=== PATIENT | male | born 1975 ===

== ENCOUNTER 2016-10-09 03:07 | Emergency (ER) | payer MEDICAID ==
[2016-10-09 03:19] VITALS: BP 119/93; PULSE 16; TEMP 97.2; O2SAT 97
[2016-10-09] MEDS ORDERED: Albuterol-Ipratrop 3 mg / 0.5 (3 ml) UD ONE ×2 (03:45→04:48)
[2016-10-09] MEDS ORDERED: Albuterol-Ipratrop 3 mg / 0.5 (3 ml) UD INH STA ×2 (03:47→04:42)
--- NOTE | 2016-10-09 03:56 | ED PDOC ---
HPI: SOB/CHF/COPD Time Seen by Provider: 10/09/16 03:10 Chief Complaint (Nursing): Shortness Of Breath Chief Complaint (Provider): asthma History Per: Patient History/Exam Limitations: no limitations Additional Complaint(s): pt with history of asthma, presented with asthma exacerbation. pt ran out of albuterol MDI 2 days ago and tonight a few hours ago started feeling sob and chest tightening. no fever/chills/vomiting/chest pain or other symptoms. Past Medical History Reviewed: Historical Data, Nursing Documentation Vital Signs: Last Vital Signs Temp 97.2 F L 10/09/16 03:17 Pulse 16 L 10/09/16 03:17 Resp 16 10/09/16 03:17 BP 119/93 H 10/09/16 03:17 Pulse Ox 97 10/09/16 03:56 - Medical History PMH: Asthma, Pneumonia - Surgical History Surgical History: No Surg Hx - Family History Family History: States: Unknown Family Hx - Social History Current smoker - smoking cessation education provided: No Alcohol: None Drugs: Denies - Home Medications Home Medications: Ambulatory Orders Medication Instructions Recorded oxyCODONE/Acetaminophen [Percocet 1 ea PO Q8 PRN #10 tab 07/22/16 5/325 mg Tab] Methylprednisolone [Medrol Dosepak] 4 mg PO ASDIR #1 pkg 08/02/16 Albuterol HFA [Ventolin HFA 90 2 puff IH Q4H #1 puff 08/24/16 mcg/actuation (8 g)] Albuterol HFA [Ventolin HFA 90 1 - 2 puff IH Q4H PRN #1 bottle 10/09/16 mcg/actuation (8 g)] predniSONE [Prednisone] 40 mg PO DAILY #8 tab 10/09/16 - Allergies Allergies/Adverse Reactions: Allergies Allergy/AdvReac Type Severity Reaction Status Date / Time No Known Allergies Allergy Verified 05/11/16 00:11 Review of Systems ROS Statement: Except As Marked, All Systems Reviewed And Found Negative Respiratory: Positive for: Shortness of Breath Physical Exam - Reviewed Nursing Documentation Reviewed: Yes Vital Signs Reviewed: Yes - Physical Exam Appears: Positive for: Well, Non-toxic, No Acute Distress Head Exam: Positive for: ATRAUMATIC, NORMAL INSPECTION, NORMOCEPHALIC Skin: Positive for: Normal Color, Warm, DRY Eye Exam: Positive for: EOMI, Normal appearance, PERRL ENT: Positive for: Normal ENT Inspection Neck: Positive for: Normal, Painless ROM Cardiovascular/Chest: Positive for: Regular Rate, Rhythm Respiratory: Positive for: CNT, Normal Breath Sounds Gastrointestinal/Abdominal: Positive for: Normal Exam, Bowel Sounds, Soft Back: Positive for: Normal Inspection Extremity: Positive for: Normal ROM Neurologic/Psych: Positive for: Alert, Oriented - ECG O2 Sat by Pulse Oximetry: 97 Medical Decision Making Medical Decision Making: asthma exacacerbation duonebs prednisone pt reevaluated, feels better. lungs clear, 02 sat normal. dx asthma rx albuterol mdi prednisone outpt follow up recomended-referral to clinic Disposition - Clinical Impression Clinical Impression: Asthma - Patient ED Disposition Is Patient to be Admitted: No Counseled Patient/Family Regarding: Studies Performed, Diagnosis, Need For Followup - Disposition Referrals: Kyle Lizama DO [Primary Care Provider] - Disposition: Routine/Home Disposition Time: 05:00 Condition: GOOD Additional Instructions: follow up with your primary doctor in 1-2 days. return to ED with any worsening or concerning symptoms Prescriptions: Albuterol HFA [Ventolin HFA 90 mcg/actuation (8 g)] 1 - 2 puff IH Q4H PRN #1 bottle PRN Reason: Wheezing predniSONE [Prednisone] 40 mg PO DAILY #8 tab Instructions: Asthma (ED)
[2016-10-09 06:37] VITALS: RESP 18
== END 2016-10-09 05:30 | disposition home or self-care (01) ==
LOC: H.ER 03:07
DX: J45.901 Unspecified asthma with (acute) exacerbation (principal)

== ENCOUNTER 2016-10-14 00:08 | Emergency (ER) | payer MEDICAID ==
[2016-10-14 00:13] VITALS: BP 120/67; PULSE 102; TEMP 98; O2SAT 98
[2016-10-14] MEDS ORDERED: Albuterol-Ipratrop 3 mg / 0.5 (3 ml) UD INH STA ×2 (00:24→00:25)
[2016-10-14] MEDS ORDERED: methylPREDNISolone 125 MG in Sodium Chloride 0.9% 100 ML IV STA (00:24)
--- NOTE | 2016-10-14 01:12 | ED PDOC ---
HPI: SOB/CHF/COPD Time Seen by Provider: 10/14/16 00:13 Chief Complaint (Nursing): Shortness Of Breath Chief Complaint (Provider): SOB History Per: Patient History/Exam Limitations: no limitations Onset/Duration Of Symptoms: Hrs Current Symptoms Are (Timing): Gone Now Additional Complaint(s): 41yo male with PMHx including asthma presents to the ED with c/o SOB, now resolved. Patient ran out of home albuterol and pump causing presentation. No active wheezing, SOB, discomfort, or any other symptoms. Patient is presenting for refill of albuterol. Past Medical History Reviewed: Historical Data, Nursing Documentation, Vital Signs Vital Signs: Last Vital Signs Temp 98.0 F 10/14/16 00:11 Pulse 102 H 10/14/16 00:11 Resp 16 10/14/16 00:11 BP 120/67 10/14/16 00:11 Pulse Ox 98 10/14/16 00:11 - Medical History PMH: Asthma, Pneumonia - Surgical History Surgical History: No Surg Hx - Family History Family History: States: No Known Family Hx - Social History Current smoker - smoking cessation education provided: No Alcohol: None Drugs: Denies - Home Medications Home Medications: Ambulatory Orders Medication Instructions Recorded oxyCODONE/Acetaminophen [Percocet 1 ea PO Q8 PRN #10 tab 07/22/16 5/325 mg Tab] Methylprednisolone [Medrol Dosepak] 4 mg PO ASDIR #1 pkg 08/02/16 Albuterol HFA [Ventolin HFA 90 2 puff IH Q4H #1 puff 08/24/16 mcg/actuation (8 g)] Albuterol HFA [Ventolin HFA 90 1 - 2 puff IH Q4H PRN #1 bottle 10/09/16 mcg/actuation (8 g)] predniSONE [Prednisone] 40 mg PO DAILY #8 tab 10/09/16 Albuterol 0.5% [Albuterol 0.5% 2.5 mg IH Q6 PRN #1 packet 10/14/16 Inhal Stephanie (2.5 mg/0.5 ml) UD] Albuterol HFA [Ventolin HFA 90 1 - 2 puff IH Q6 PRN #1 inhaler 10/14/16 mcg/actuation (8 g)] - Allergies Allergies/Adverse Reactions: Allergies Allergy/AdvReac Type Severity Reaction Status Date / Time No Known Allergies Allergy Verified 10/14/16 00:11 Review of Systems ROS Statement: Except As Marked, All Systems Reviewed And Found Negative Respiratory: Negative for: Shortness of Breath, Wheezing Physical Exam - Reviewed Nursing Documentation Reviewed: Yes Vital Signs Reviewed: Yes - Physical Exam Appears: Positive for: Well, No Acute Distress Head Exam: Positive for: ATRAUMATIC, NORMAL INSPECTION, NORMOCEPHALIC Skin: Positive for: Normal Color, Warm, Dry Eye Exam: Positive for: Normal appearance, EOMI, PERRL ENT: Positive for: Normal ENT Inspection Neck: Positive for: Normal, Painless ROM, Supple Cardiovascular/Chest: Positive for: Regular Rate, Rhythm. Negative for: Murmur , Tachycardia Respiratory: Positive for: Normal Breath Sounds. Negative for: Wheezing, Respiratory Distress Gastrointestinal/Abdominal: Positive for: Normal Exam, Bowel Sounds, Soft. Negative for: Tenderness Back: Positive for: Normal Inspection. Negative for: L CVA Tenderness, R CVA Tenderness Extremity: Positive for: Normal ROM. Negative for: Deformity, Swelling Neurologic/Psych: Positive for: Alert, Oriented. Negative for: Motor/Sensory Deficits - ECG O2 Sat by Pulse Oximetry: 98 Pulse Ox Interpretation: Normal (RA) Medical Decision Making Medical Decision Makin: Impression: asthma Plan: Patient provided Rx for nebulizer solution, albuterol, and pump. Patient is stable for discharge. Scribe Attestation: Documented by Miya Hay acting as a scribe for Kahlil Fairchild MD. Provider Scribe Attestation: All medical record entries made by the Scribe were at my direction and personally dictated by me. I have reviewed the chart and agree that the record accurately reflects my personal performance of the history, physical exam, medical decision making, and the department course for this patient. I have also personally directed, reviewed, and agree with the discharge instructions and disposition. Disposition - Clinical Impression Clinical Impression: Asthma - Patient ED Disposition Is Patient to be Admitted: No - Disposition Referrals: Kyle Lizama DO [Primary Care Provider] - Disposition: Routine/Home Disposition Time: 01:18 Condition: STABLE Prescriptions: Albuterol 0.5% [Albuterol 0.5% Inhal Stephanie (2.5 mg/0.5 ml) UD] 2.5 mg IH Q6 PRN # 1 packet PRN Reason: Shortness Of Breath Albuterol HFA [Ventolin HFA 90 mcg/actuation (8 g)] 1 - 2 puff IH Q6 PRN #1 inhaler PRN Reason: Shortness Of Breath Instructions: Asthma (ED)
[2016-10-14 05:28] VITALS: RESP 20
== END 2016-10-14 01:03 | disposition home or self-care (01) ==
LOC: H.ER 00:08
DX: J45.909 Unspecified asthma, uncomplicated (principal)

== ENCOUNTER 2016-12-11 02:00 | Emergency (ER) | payer MEDICAID ==
[2016-12-11] MEDS ORDERED: Albuterol-Ipratrop 3 mg / 0.5 (3 ml) UD INH STA ×3 (03:00→03:20)
[2016-12-11] MEDS ORDERED: Albuterol-Ipratrop 3 mg / 0.5 (3 ml) UD ONE (03:22)
--- NOTE | 2016-12-11 04:33 | ED PDOC ---
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 denies fevers/chills. Past Medical History Reviewed: Historical Data, Nursing Documentation, Vital Signs - Medical History PMH: Asthma, Pneumonia - Family History Family History: States: Unknown Family Hx - Home Medications Home Medications: Ambulatory Orders Medication Instructions Recorded oxyCODONE/Acetaminophen [Percocet 1 ea PO Q8 PRN #10 tab 07/22/16 5/325 mg Tab] Methylprednisolone [Medrol Dosepak] 4 mg PO ASDIR #1 pkg 08/02/16 Albuterol HFA [Ventolin HFA 90 2 puff IH Q4H #1 puff 08/24/16 mcg/actuation (8 g)] Albuterol HFA [Ventolin HFA 90 1 - 2 puff IH Q4H PRN #1 bottle 10/09/16 mcg/actuation (8 g)] predniSONE [Prednisone] 40 mg PO DAILY #8 tab 10/09/16 Albuterol 0.5% [Albuterol 0.5% 2.5 mg IH Q6 PRN #1 packet 10/14/16 Inhal Stephanie (2.5 mg/0.5 ml) UD] Albuterol HFA [Ventolin HFA 90 1 - 2 puff IH Q6 PRN #1 inhaler 10/14/16 mcg/actuation (8 g)] Albuterol HFA [Ventolin HFA 90 2 puff IH [id number] #1 puff 12/11/16 mcg/actuation (8 g)] predniSONE [predniSONE Tab] 60 mg PO DAILY #9 tab 12/11/16 - Allergies Allergies/Adverse Reactions: Allergies Allergy/AdvReac Type Severity Reaction Status Date / Time No Known Allergies Allergy Verified 10/14/16 00:11 Review of Systems ROS Statement: Except As Marked, All Systems Reviewed And Found Negative Respiratory: Positive for: Cough, Shortness of Breath, Wheezing Physical Exam - Reviewed Nursing Documentation Reviewed: Yes - Physical Exam Appears: Positive for: Well, Non-toxic, No Acute Distress Head Exam: Positive for: ATRAUMATIC, NORMAL INSPECTION, NORMOCEPHALIC Skin: Positive for: Normal Color, Warm, DRY Eye Exam: Positive for: EOMI, Normal appearance, PERRL ENT: Positive for: Normal ENT Inspection Neck: Positive for: Normal, Painless ROM Cardiovascular/Chest: Positive for: Regular Rate, Rhythm Respiratory: Positive for: Wheezing Gastrointestinal/Abdominal: Positive for: Normal Exam, Bowel Sounds, Soft Back: Positive for: Normal Inspection Extremity: Positive for: Normal ROM Neurologic/Psych: Positive for: Alert, Oriented - ECG Pulse Ox Interpretation: Normal Medical Decision Making Medical Decision Making: Impression: asthma exacerbation. Will give nebs and reassess patient. 420AM: Pt's wheezing much improved, will d/c home. Return precautions given. Disposition - Clinical Impression Clinical Impression: Asthma - Disposition Referrals: Kyle Lizama DO [Primary Care Provider] - Disposition Time: 04:20 Condition: IMPROVED Prescriptions: Albuterol HFA [Ventolin HFA 90 mcg/actuation (8 g)] 2 puff IH [id number] #1 puff predniSONE [predniSONE Tab] 60 mg PO DAILY #9 tab Instructions: Asthma (ED)
[2016-12-11 04:38] VITALS: BP 127/89; PULSE 74; RESP 18; TEMP 99; O2SAT 96; BMI 23.1
--- NOTE | 2016-12-11 16:09 | CARD ---
APPROVED REPORT EKG Measurement Heart [id number] [place] 164P83 [id number] <Conclusion> Normal sinus rhythm Normal ECG
== END 2016-12-11 04:28 | disposition home or self-care (01) ==
LOC: H.ER 02:00
DX: J45.901 Unspecified asthma with (acute) exacerbation (principal)

== ENCOUNTER 2016-12-26 16:44 | Emergency (ER) | payer MEDICAID ==
[2016-12-26 16:44] VITALS: BMI 23.1
[2016-12-26 16:54] VITALS: BP 139/49; TEMP 98.2; O2SAT 94
[2016-12-26] MEDS ORDERED: Albuterol-Ipratrop 3 mg / 0.5 (3 ml) UD ONE ×2 (16:57→18:13)
[2016-12-26] MEDS ORDERED: Albuterol-Ipratrop 3 mg / 0.5 (3 ml) UD INH STA ×2 (17:01→18:16)
[2016-12-26 17:20] VITALS: RESP 21
--- NOTE | 2016-12-26 17:32 | ED PDOC ---
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 Patient states that he recently ran out of his Albuterol pump. Similar symptoms previously of asthma exacerbation in the past. Denies a fever or a productive cough. PMD: Higinio Lyles Past Medical History Reviewed: Historical Data, Nursing Documentation, Vital Signs Vital Signs: Last Vital Signs Temp 98.2 F 12/26/16 16:51 Pulse 82 12/26/16 17:43 Resp 21 12/26/16 17:07 BP 139/49 L 12/26/16 16:51 Pulse Ox 94 L 12/26/16 17:43 - Medical History PMH: Asthma, Pneumonia - Surgical History Surgical History: No Surg Hx - Family History Family History: States: No Known Family Hx - Social History Current smoker - smoking cessation education provided: No Ex-Smoker (has not smoked in the last 12 months): No Alcohol: Occasional Drugs: Cannabis, Cocaine, Opiates (heroin) - Home Medications Home Medications: Ambulatory Orders Medication Instructions Recorded oxyCODONE/Acetaminophen [Percocet 1 ea PO Q8 PRN #10 tab 07/22/16 5/325 mg Tab] Methylprednisolone [Medrol Dosepak] 4 mg PO ASDIR #1 pkg 08/02/16 Albuterol HFA [Ventolin HFA 90 2 puff IH Q4H #1 puff 08/24/16 mcg/actuation (8 g)] Albuterol HFA [Ventolin HFA 90 1 - 2 puff IH Q4H PRN #1 bottle 10/09/16 mcg/actuation (8 g)] predniSONE [Prednisone] 40 mg PO DAILY #8 tab 10/09/16 Albuterol 0.5% [Albuterol 0.5% 2.5 mg IH Q6 PRN #1 packet 10/14/16 Inhal Stephanie (2.5 mg/0.5 ml) UD] Albuterol HFA [Ventolin HFA 90 1 - 2 puff IH Q6 PRN #1 inhaler 10/14/16 mcg/actuation (8 g)] Albuterol HFA [Ventolin HFA 90 2 puff IH [id number] #1 puff 12/11/16 mcg/actuation (8 g)] predniSONE [predniSONE Tab] 60 mg PO DAILY #9 tab 12/11/16 Albuterol HFA [Ventolin HFA 90 2 puff IH Q4H PRN #1 inh 12/26/16 mcg/actuation (8 g)] Prednisone 50 mg PO DAILY #4 tablet 12/26/16 - Allergies Allergies/Adverse Reactions: Allergies Allergy/AdvReac Type Severity Reaction Status Date / Time No Known Allergies Allergy Verified 12/26/16 16:51 Review of Systems ROS Statement: Except As Marked, All Systems Reviewed And Found Negative Constitutional: Negative for: Fever Respiratory: Positive for: Shortness of Breath. Negative for: Cough, Sputum Physical Exam - Reviewed Nursing Documentation Reviewed: Yes Vital Signs Reviewed: Yes - Physical Exam Appears: Positive for: Well, Non-toxic, No Acute Distress Head Exam: Positive for: ATRAUMATIC, NORMOCEPHALIC Skin: Positive for: Normal Color, Warm Eye Exam: Positive for: Normal appearance, EOMI, PERRL ENT: Positive for: Normal ENT Inspection. Negative for: Pharyngeal Erythema, Tonsillar Exudate, Tonsillar Swelling Neck: Positive for: Normal, Painless ROM, Supple Cardiovascular/Chest: Positive for: Regular Rate, Rhythm. Negative for: Murmur Respiratory: Positive for: Wheezing (diffuse, inspiratory and expiratory), Respiratory Distress (mild). Negative for: Normal Breath Sounds, Accessory Muscle Use Gastrointestinal/Abdominal: Positive for: Normal Exam, Soft. Negative for: Tenderness Back: Positive for: Normal Inspection. Negative for: L CVA Tenderness, R CVA Tenderness Extremity: Positive for: Normal ROM. Negative for: Tenderness, Swelling Lymphatic: Negative for: Adenopathy Neurologic/Psych: Positive for: Alert, Oriented. Negative for: Motor/Sensory Deficits - ECG ECG Rhythm: Positive for: Normal QRS, Normal ST Segment, Sinus Rhythm Rate: 82 O2 Sat by Pulse Oximetry: 94 (RA) Pulse Ox Interpretation: Normal Medical Decision Making Medical Decision Makin:58 Initial Impression: Asthma exacerbation Initial Plan: * Electrocardiogram * Albuterol/Ipratropium 6 ml INH * Peak Flow Pre/Post Treatment * Reevaluation 17:30 EKG read at a rate of 82 with a Normal QRS, Normal ST Segment, and a Normal Sinus Rhythm. 1900 Pt has persistent wheeze with minimal peak flow improvement. However he reports feeling better and eager to go home. dc w f/u pmd 1-2 d Scribe Attestation: Documented by Bismark Krishnamurthy, acting as a scribe for Casandra Chaparro MD. Provider Scribe Attestation: All medical record entries made by the Scribe were at my direction and personally dictated by me. I have reviewed the chart and agree that the record accurately reflects my personal performance of the history, physical exam, medical decision making, and the department course for this patient. I have also personally directed, reviewed, and agree with the discharge instructions and disposition. Disposition - Clinical Impression Clinical Impression: Asthma exacerbation - Disposition Referrals: Higinio Lyles MD [Staff Provider] - Disposition: Routine/Home Disposition Time: 19:00 Condition: IMPROVED Prescriptions: Albuterol HFA [Ventolin HFA 90 mcg/actuation (8 g)] 2 puff IH Q4H PRN #1 inh PRN Reason: ASTHMA Prednisone 50 mg PO DAILY #4 tablet Instructions: Asthma (ED)
[2016-12-26 17:43] VITALS: PULSE 82
--- NOTE | 2016-12-27 08:52 | CARD ---
APPROVED REPORT EKG Measurement Heart [id number] [place] [id number] [id number] <Conclusion> Sinus tachycardia Possible Left atrial enlargement Left ventricular hypertrophy with repolarization abnormality Abnormal ECG
--- NOTE | 2016-12-31 09:35 | CARD ---
APPROVED REPORT EKG Measurement Heart [id number] [place] 156P78 [id number] <Conclusion> Normal sinus rhythm with sinus arrhythmia Normal ECG
== END 2016-12-26 19:30 | disposition home or self-care (01) ==
LOC: H.ER 16:44
DX: J45.901 Unspecified asthma with (acute) exacerbation (principal); Z87.891 Personal history of nicotine dependence

== ENCOUNTER 2017-01-05 09:36 | Emergency (ER) | payer MEDICAID ==
[2017-01-05 09:44] VITALS: BP 146/106; PULSE 78; RESP 18; TEMP 98.2; O2SAT 100; BMI 26.6
[2017-01-05] MEDS ORDERED: Sodium Chloride 0.9% 1,000 ML IV STA (10:29)
[2017-01-05] MEDS ORDERED: Albuterol-Ipratrop 3 mg / 0.5 (3 ml) UD INH STA (10:29)
--- NOTE | 2017-01-05 10:31 | ED PDOC ---
HPI: Chest Pain Time Seen by Provider: 01/05/17 10:15 Chief Complaint (Nursing): Chest Pain Chief Complaint (Provider): Chest pain History Per: Patient History/Exam Limitations: no limitations Onset/Duration Of Symptoms: Days (3) Current Symptoms Are (Timing): Still Present Additional Complaint(s): Pt. states chest pain sternal for 3 days. 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 No dyspnea. Has cough and sputum. No neck pains. No abd pain, nausea, vomit, diarrhea, weakness, headaches, sore throat, drugs, etoh, long distance travel, calf pain, hormone tx. Past Medical History Reviewed: Nursing Documentation, Vital Signs Vital Signs: Last Vital Signs Temp 98.2 F 01/05/17 09:43 Pulse 78 01/05/17 09:43 Resp 18 01/05/17 09:43 BP 146/106 H 01/05/17 09:43 Pulse Ox 100 01/05/17 10:36 - Medical History PMH: Asthma, Back Problems - Surgical History Surgical History: No Surg Hx - Family History Family History: States: Unknown Family Hx - Social History Current smoker - smoking cessation education provided: No Alcohol: None Drugs: Denies - Home Medications Home Medications: Ambulatory Orders Medication Instructions Recorded oxyCODONE/Acetaminophen [Percocet 1 ea PO Q8 PRN #10 tab 07/22/16 5/325 mg Tab] Methylprednisolone [Medrol Dosepak] 4 mg PO ASDIR #1 pkg 08/02/16 Albuterol HFA [Ventolin HFA 90 2 puff IH Q4H #1 puff 08/24/16 mcg/actuation (8 g)] Albuterol HFA [Ventolin HFA 90 1 - 2 puff IH Q4H PRN #1 bottle 10/09/16 mcg/actuation (8 g)] predniSONE [Prednisone] 40 mg PO DAILY #8 tab 10/09/16 Albuterol 0.5% [Albuterol 0.5% 2.5 mg IH Q6 PRN #1 packet 10/14/16 Inhal Stephanie (2.5 mg/0.5 ml) UD] Albuterol HFA [Ventolin HFA 90 1 - 2 puff IH Q6 PRN #1 inhaler 10/14/16 mcg/actuation (8 g)] Albuterol HFA [Ventolin HFA 90 2 puff IH [id number] #1 puff 12/11/16 mcg/actuation (8 g)] predniSONE [predniSONE Tab] 60 mg PO DAILY #9 tab 12/11/16 Albuterol HFA [Ventolin HFA 90 2 puff IH Q4H PRN #1 inh 12/26/16 mcg/actuation (8 g)] Prednisone 50 mg PO DAILY #4 tablet 12/26/16 Ibuprofen [Motrin] 600 mg PO TID 7 Days 01/05/17 - Allergies Allergies/Adverse Reactions: Allergies Allergy/AdvReac Type Severity Reaction Status Date / Time No Known Allergies Allergy Verified 01/05/17 09:42 Review of Systems ROS Statement: Except As Marked, All Systems Reviewed And Found Negative Cardiovascular: Positive for: Chest Pain Physical Exam - Reviewed Nursing Documentation Reviewed: Yes Vital Signs Reviewed: Yes - Physical Exam Appears: Positive for: Non-toxic, No Acute Distress Head Exam: Positive for: ATRAUMATIC, NORMAL INSPECTION, NORMOCEPHALIC Skin: Positive for: Normal Color, Warm, DRY Eye Exam: Positive for: EOMI, Normal appearance, PERRL ENT: Positive for: Normal ENT Inspection Neck: Positive for: Normal, Painless ROM Cardiovascular/Chest: Positive for: Regular Rate, Rhythm Respiratory: Positive for: Wheezing (mild end expiratory) Gastrointestinal/Abdominal: Positive for: Normal Exam, Bowel Sounds, Soft. Negative for: Tenderness Back: Positive for: Normal Inspection. Negative for: L CVA Tenderness, R CVA Tenderness Extremity: Positive for: Normal ROM. Negative for: Tenderness, Pedal Edema Neurologic/Psych: Positive for: Alert, Oriented - Laboratory Results Result Diagrams: 01/05/17 10:50 01/05/17 10:50 Interpretation Of Abn Labs: opiates pos - ECG ECG: Positive for: Interpreted By Me, Viewed By Me ECG Rhythm: Positive for: Normal QRS, Normal ST Segment, Sinus Rhythm O2 Sat by Pulse Oximetry: 100 Pulse Ox Interpretation: Normal - Radiology X-Ray: Read By Radiologist X-Ray Interpretation: No Acute Disease - Progress ED Course And Treament: 1301: Stable. AAOx3. Pain free. Tolerated PO. Fu with pcp. Pt. bp elevated on arrival. FU with pcp to further eval bp and chest pain. Disposition - Clinical Impression Clinical Impression: Chest pain, URI (upper respiratory infection), Elevated blood pressure reading - Patient ED Disposition Is Patient to be Admitted: No Counseled Patient/Family Regarding: Studies Performed, Diagnosis, Need For Followup, Rx Given - Disposition Referrals: [facility] [Outside] - 01/06/17 Disposition: Routine/Home Disposition Time: 13:03 Condition: STABLE Additional Instructions: Follow up with your doctor for evaluation of your blood pressure and chest pain. Return if not better in 3 days. Prescriptions: Ibuprofen [Motrin] 600 mg PO TID 7 Days Instructions: Chest Pain (ED), Upper Respiratory Infection (ED), Hypotension ( ED), Hypertension (ED) Forms: [employer] (Bulgarian)
[2017-01-05 10:57] LABS: BASO % 0.4 % (0.0-2.0); EOS % 0.2 % (0.0-4.0); HEMATOCRIT 43.4 % (35.0-51.0); LYMPH # 0.8 K/uL (1.0-4.3); LYMPH % 8.1 % (20.0-40.0); MEAN CELL VOLUME 92.5 fl (80.0-94.0); MEAN CORPUSCULAR HEMOGLOBIN 31.2 pg (27.0-31.0); MEAN CORPUSCULAR HGB CONC 33.7 g/dL (33.0-37.0); MEAN PLATELET VOLUME 8.4 fl (7.2-11.7); MONO # 0.4 K/uL (0.0-0.8); NEUT # 8.4 K/uL (1.8-7.0); NEUT % 87.3 % (50.0-75.0); PLATELET COUNT 357 K/uL (130-400); RED CELL DISTRIBUTION WIDTH 12.3 % (11.5-14.5); WHITE BLOOD COUNT 9.6 K/uL (4.8-10.8)
[2017-01-05 11:08] LABS: ALB/GLOB RATIO 1.5 (1.0-2.1); ALCOHOL SERUM < 10 mg/dl (0-10); ALKALINE PHOSPHATASE 79 U/L (38-126); ALT/SGPT 28 U/L (21-72); AST/SGOT 55 U/L (17-59); BILIRUBIN,TOTAL 1.6 mg/dl (0.2-1.3); BLOOD UREA NITROGEN 18 mg/dl (9-20); CALCIUM 9.4 mg/dL (8.4-10.2); CARBON DIOXIDE 27 mmol/L (22-30); CHLORIDE 101 mmol/L (98-107); GFR AFRICAN-AMERICAN > 60; GLUCOSE,RANDOM 122 mg/dL (75-110); SODIUM 138 mmol/l (132-148); TOTAL PROTEIN 7.8 G/DL (6.3-8.2)
--- NOTE | 2017-01-05 11:26 | RAD ---
HISTORY: dyspnea COMPARISON: No prior. FINDINGS: LUNGS: No active pulmonary disease. PLEURA: No significant pleural effusion identified, no pneumothorax apparent. CARDIOVASCULAR: Normal. OSSEOUS STRUCTURES: No significant abnormalities. VISUALIZED UPPER ABDOMEN: Normal. OTHER FINDINGS: None. IMPRESSION: No active disease.
[2017-01-05 11:29] LABS: POTASSIUM 4.8 MMOL/L (3.6-5.0)
[2017-01-05] MEDS ORDERED: Albuterol-Ipratrop 3 mg / 0.5 (3 ml) UD ONE (12:23)
[2017-01-05 12:33] LABS: EOSINOPHIL 1 % (0-7); NEUTROPHIL 90 % (42-75); TOTAL CELLS COUNTED 100
--- NOTE | 2017-01-05 14:56 | CARD ---
APPROVED REPORT EKG Measurement Heart [id number] CT 158P59 [id number] <Conclusion> Normal sinus rhythm Possible Left atrial enlargement Borderline ECG
== END 2017-01-05 13:51 | disposition home or self-care (01) ==
LOC: H.ER 09:36
DX: J06.9 Acute upper respiratory infection, unspecified (principal)

== ENCOUNTER 2017-01-17 21:48 | Emergency (ER) | payer MEDICAID ==
[2017-01-17 21:49] VITALS: BMI 26.6
[2017-01-17 21:57] VITALS: BP 122/69; TEMP 98.3
[2017-01-17] MEDS ORDERED: Albuterol-Ipratrop 3 mg / 0.5 (3 ml) UD INH STA (22:12)
[2017-01-17] MEDS ORDERED: Albuterol-Ipratrop 3 mg / 0.5 (3 ml) UD IH STA ×2 (22:12→22:13)
--- NOTE | 2017-01-17 22:19 | ED PDOC ---
HPI: SOB/CHF/COPD Time Seen by Provider: 01/17/17 22:04 Chief Complaint (Nursing): Shortness Of Breath Chief Complaint (Provider): Shortness Of Breath History Per: Patient History/Exam Limitations: no limitations Onset/Duration Of Symptoms: Hrs Current Symptoms Are (Timing): Still Present Initiating Event: Out Of Medications Associated Symptoms: denies: Fever, Chest Pain Additional Complaint(s): Kalyan Ryan, a 41 year old male, who has a past medical history of asthma presents to the ED complaining of shortness of breath. The patient states that he is currently out of medication. He reports that he was seen in the ED 2-3 weeks ago for the same thing. The patient reports that he went to the doctor but did not get his prescription filled. Denies chest pain, fever, cough, abdominal pain. No nausea, vomit, diarrhea, weakness, cough. Has wheezes and is the same as his asthma. 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 Past Medical History Reviewed: Historical Data, Nursing Documentation, Vital Signs Vital Signs: Last Vital Signs Temp 98.3 F 01/17/17 21:55 Pulse 103 H 01/17/17 21:55 Resp 19 01/17/17 22:20 BP 122/69 01/17/17 21:55 Pulse Ox 90 L 01/17/17 22:36 - Medical History PMH: Asthma, Back Problems - Surgical History Surgical History: No Surg Hx - Family History Family History: States: Unknown Family Hx - Living Arrangements Living Arrangements: With Family - Social History Current smoker - smoking cessation education provided: No Alcohol: None Drugs: Denies - Home Medications Home Medications: Ambulatory Orders Medication Instructions Recorded oxyCODONE/Acetaminophen [Percocet 1 ea PO Q8 PRN #10 tab 07/22/16 5/325 mg Tab] Methylprednisolone [Medrol Dosepak] 4 mg PO ASDIR #1 pkg 08/02/16 Albuterol HFA [Ventolin HFA 90 2 puff IH Q4H #1 puff 08/24/16 mcg/actuation (8 g)] Albuterol HFA [Ventolin HFA 90 1 - 2 puff IH Q4H PRN #1 bottle 10/09/16 mcg/actuation (8 g)] predniSONE [Prednisone] 40 mg PO DAILY #8 tab 10/09/16 Albuterol 0.5% [Albuterol 0.5% 2.5 mg IH Q6 PRN #1 packet 10/14/16 Inhal Stephanie (2.5 mg/0.5 ml) UD] Albuterol HFA [Ventolin HFA 90 1 - 2 puff IH Q6 PRN #1 inhaler 10/14/16 mcg/actuation (8 g)] Albuterol HFA [Ventolin HFA 90 2 puff IH [id number] #1 puff 12/11/16 mcg/actuation (8 g)] predniSONE [predniSONE Tab] 60 mg PO DAILY #9 tab 12/11/16 Albuterol HFA [Ventolin HFA 90 2 puff IH Q4H PRN #1 inh 12/26/16 mcg/actuation (8 g)] Prednisone 50 mg PO DAILY #4 tablet 12/26/16 Ibuprofen [Motrin] 600 mg PO TID 7 Days 01/05/17 Albuterol Sulfate [Proair Hfa] 0.09 mg IH Q6H PRN #2 inh 01/17/17 predniSONE [predniSONE Tab] 20 mg PO BID 5 Days 01/17/17 - Allergies Allergies/Adverse Reactions: Allergies Allergy/AdvReac Type Severity Reaction Status Date / Time No Known Allergies Allergy Verified 01/17/17 21:56 Review of Systems ROS Statement: Except As Marked, All Systems Reviewed And Found Negative Constitutional: Negative for: Fever Cardiovascular: Negative for: Chest Pain Respiratory: Positive for: Shortness of Breath, Wheezing. Negative for: Cough Gastrointestinal: Negative for: Abdominal Pain Physical Exam - Reviewed Nursing Documentation Reviewed: Yes Vital Signs Reviewed: Yes - Physical Exam Appears: Positive for: Non-toxic, No Acute Distress Head Exam: Positive for: ATRAUMATIC, NORMAL INSPECTION, NORMOCEPHALIC Skin: Positive for: Normal Color, Warm, Dry Eye Exam: Positive for: Normal appearance ENT: Positive for: Nasal Congestion Neck: Positive for: Normal, Painless ROM, Supple Cardiovascular/Chest: Positive for: Regular Rate, Rhythm, Chest Non Tender. Negative for: Tachycardia Respiratory: Positive for: Wheezing (Diffuse wheezing). Negative for: Normal Breath Sounds, Accessory Muscle Use, Respiratory Distress Gastrointestinal/Abdominal: Positive for: Normal Exam, Bowel Sounds, Soft. Negative for: Tenderness, Guarding, Rebound Back: Positive for: Normal Inspection. Negative for: L CVA Tenderness, R CVA Tenderness Extremity: Positive for: Normal ROM. Negative for: Tenderness, Deformity, Swelling Neurologic/Psych: Positive for: Alert, Oriented, Gait - ECG ECG: Positive for: Interpreted By Me, Viewed By Me ECG Rhythm: Positive for: Normal QRS, Normal ST Segment, Sinus Rhythm O2 Sat by Pulse Oximetry: 90 (RA) Pulse Ox Interpretation: Abnormal - Progress ED Course And Treament: 1131: Stable. Feels much better. AAOx3. No wheezes. Wants to go home. Rx for meds. 96% on RA. Medical Decision Making Medical Decision Makin:04 Initial Impression: 41 year old male presenting with shortness of breath Initial Plan: * EKG * Dunoneb 3ml INH * Prednisone 60mg PO * Peak flow pre/post. Tx pre/post treatment * Reevaluation Scribe Attestation Documented by Barbara Arthur acting as a scribe for Khari Grimm MD. Provider Attestation All medical record entries made by the Scribe were at my direction and personally dictated by me. I have reviewed the chart and agree that the record accurately reflects my personal performance of the history, physical exam, medical decision making, and the department course for this patient. I have also personally directed, reviewed, and agree with the discharge instructions and disposition. Disposition - Clinical Impression Clinical Impression: Asthma - Patient ED Disposition Is Patient to be Admitted: No Counseled Patient/Family Regarding: Studies Performed, Diagnosis, Need For Followup, Rx Given - Disposition Referrals: [facility] [Outside] - 01/20/17 Disposition: Routine/Home Disposition Time: 23:32 Condition: STABLE Additional Instructions: Return if not better in 3 days. Prescriptions: Albuterol Sulfate [Proair Hfa] 0.09 mg IH Q6H PRN #2 inh PRN Reason: Wheezing predniSONE [predniSONE Tab] 20 mg PO BID 5 Days Instructions: Asthma (ED)
[2017-01-17 23:27] VITALS: PULSE 102; RESP 18
[2017-01-17 23:32] VITALS: O2SAT 90
--- NOTE | 2017-01-18 14:02 | CARD ---
APPROVED REPORT EKG Measurement Heart [id number] <Conclusion> Normal sinus rhythm Biatrial enlargement Abnormal ECG
== END 2017-01-17 23:53 | disposition home or self-care (01) ==
LOC: H.ER 21:48
DX: J45.909 Unspecified asthma, uncomplicated (principal)

== ENCOUNTER 2017-02-10 00:08 | Emergency (ER) | payer MEDICAID ==
[2017-02-10 00:23] VITALS: BMI 28.2
[2017-02-10] MEDS ORDERED: Albuterol-Ipratrop 3 mg / 0.5 (3 ml) UD INH STA ×3 (00:23→00:24)
[2017-02-10] MEDS ORDERED: Magnesium Sulfate 2 gm/50 ml 2 GM/50 ML BAG IV STA (00:24)
[2017-02-10 00:26] VITALS: BP 132/76; PULSE 98; RESP 16; TEMP 99; O2SAT 98
[2017-02-10] MEDS ORDERED: Albuterol-Ipratrop 3 mg / 0.5 (3 ml) UD ONE ×2 (00:33→00:34)
[2017-02-10] MEDS ORDERED: Magnesium Sulfate 2 gm/50 ml 2 GM/50 ML BAG ONE (00:34)
--- NOTE | 2017-02-10 00:42 | ED PDOC ---
HPI: SOB/CHF/COPD Time Seen by Provider: 02/10/17 00:20 Chief Complaint (Nursing): Shortness Of Breath Chief Complaint (Provider): Shortness of breath History Per: Patient History/Exam Limitations: no limitations Onset/Duration Of Symptoms: Hrs (x2) Current Symptoms Are (Timing): Still Present Additional Complaint(s): Kalyan Ryan is a 41 year old male with previous medical history of asthma, who presents to the emergency department with a complaint of shortness of breath associated with wheezing, chest tightness, and dry cough ongoing for 2 hours. Denies any fever or chills. 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 PMD: Higinio Lyles MD Past Medical History Reviewed: Historical Data, Nursing Documentation, Vital Signs Vital Signs: Last Vital Signs Temp 99 F 02/10/17 00:23 Pulse 98 H 02/10/17 00:23 Resp 16 02/10/17 00:23 BP 132/76 02/10/17 00:23 Pulse Ox 98 02/10/17 02:25 - Medical History PMH: Asthma, Back Problems, Pneumonia - Family History Family History: States: Unknown Family Hx - Home Medications Home Medications: Ambulatory Orders Medication Instructions Recorded oxyCODONE/Acetaminophen [Percocet 1 ea PO Q8 PRN #10 tab 07/22/16 5/325 mg Tab] Methylprednisolone [Medrol Dosepak] 4 mg PO ASDIR #1 pkg 08/02/16 Albuterol HFA [Ventolin HFA 90 2 puff IH Q4H #1 puff 08/24/16 mcg/actuation (8 g)] Albuterol HFA [Ventolin HFA 90 1 - 2 puff IH Q4H PRN #1 bottle 10/09/16 mcg/actuation (8 g)] predniSONE [Prednisone] 40 mg PO DAILY #8 tab 10/09/16 Albuterol 0.5% [Albuterol 0.5% 2.5 mg IH Q6 PRN #1 packet 10/14/16 Inhal Stephanie (2.5 mg/0.5 ml) UD] Albuterol HFA [Ventolin HFA 90 1 - 2 puff IH Q6 PRN #1 inhaler 10/14/16 mcg/actuation (8 g)] Albuterol HFA [Ventolin HFA 90 2 puff IH [id number] #1 puff 12/11/16 mcg/actuation (8 g)] predniSONE [predniSONE Tab] 60 mg PO DAILY #9 tab 12/11/16 Albuterol HFA [Ventolin HFA 90 2 puff IH Q4H PRN #1 inh 12/26/16 mcg/actuation (8 g)] Prednisone 50 mg PO DAILY #4 tablet 12/26/16 Ibuprofen [Motrin] 600 mg PO TID 7 Days 01/05/17 Albuterol Sulfate [Proair Hfa] 0.09 mg IH Q6H PRN #2 inh 01/17/17 predniSONE [predniSONE Tab] 20 mg PO BID 5 Days 01/17/17 Albuterol HFA [Ventolin HFA 90 1 - 2 puff IH Q6 PRN #1 inhaler 02/10/17 mcg/actuation (8 g)] Methylprednisolone [Medrol Dosepak] 4 mg PO ASDIR #1 pkg 02/10/17 - Allergies Allergies/Adverse Reactions: Allergies Allergy/AdvReac Type Severity Reaction Status Date / Time No Known Allergies Allergy Verified 02/10/17 00:22 Review of Systems ROS Statement: Except As Marked, All Systems Reviewed And Found Negative Constitutional: Negative for: Fever, Chills Cardiovascular: Positive for: Chest Pain (tightness) Respiratory: Positive for: Cough (dry), Shortness of Breath, Wheezing Physical Exam - Reviewed Nursing Documentation Reviewed: Yes Vital Signs Reviewed: Yes - Physical Exam Appears: Positive for: Well, Non-toxic, In Acute Distress (mild) Head Exam: Positive for: ATRAUMATIC, NORMAL INSPECTION, NORMOCEPHALIC Skin: Positive for: Normal Color, Warm, DRY Cardiovascular/Chest: Positive for: Regular Rate, Rhythm Respiratory: Positive for: Accessory Muscle Use, Wheezing (with decreased air entry), Plerual Rub (bilateral pleural effusion), Other (bilateral subcostal retraction). 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 Patient will be discharged home. Counseling was provided and all questions were answered regarding diagnosis and need for follow up with PCP. There is agreement to discharge plan. Return if symptoms persist or worsen. Clinical Impression: Asthma exacerbation Scribe Attestation: Documented by Keisha Torres, acting as a scribe for Kahlil Fairchild MD. Provider Scribe Attestation: All medical record entries made by the Scribe were at my direction and personally dictated by me. I have reviewed the chart and agree that the record accurately reflects my personal performance of the history, physical exam, medical decision making, and the department course for this patient. I have also personally directed, reviewed, and agree with the discharge instructions and disposition. Disposition - Clinical Impression Clinical Impression: Asthma exacerbation - Patient ED Disposition Is Patient to be Admitted: No Doctor Will See Patient In The: Office Counseled Patient/Family Regarding: Studies Performed, Diagnosis, Need For Followup - Disposition Disposition: Routine/Home Disposition Time: 02:20 Condition: STABLE Prescriptions: Albuterol HFA [Ventolin HFA 90 mcg/actuation (8 g)] 1 - 2 puff IH Q6 PRN #1 inhaler PRN Reason: Shortness Of Breath Methylprednisolone [Medrol Dosepak] 4 mg PO ASDIR #1 pkg Instructions: Asthma (ED) Critical Care Time - Critical Care Note Total Time (in mins): 30 Documented critical care: time excludes all time spent performing seperately billable procedures.
--- NOTE | 2017-02-10 23:26 | CARD ---
APPROVED REPORT EKG Measurement Heart [id number] <Conclusion> Normal sinus rhythm Normal ECG
== END 2017-02-10 02:33 | disposition home or self-care (01) ==
LOC: H.ER 00:08
DX: J45.901 Unspecified asthma with (acute) exacerbation (principal); J44.9 Chronic obstructive pulmonary disease, unspecified

== ENCOUNTER 2017-02-15 22:42 | Emergency (ER) | payer MEDICAID ==
[2017-02-15 22:43] VITALS: BMI 28.2
[2017-02-15 22:47] VITALS: BP 122/70; PULSE 102; TEMP 98; O2SAT 100
[2017-02-15] MEDS ORDERED: Albuterol-Ipratrop 3 mg / 0.5 (3 ml) UD INH STA (22:51)
--- NOTE | 2017-02-15 22:56 | ED PDOC ---
HPI: General Adult Time Seen by Provider: 02/15/17 22:45 Chief Complaint (Nursing): Respiratory Distress History Per: Patient Additional Complaint(s): Pt. states today he woke up with chest tightness and wheezing. He used his pump x8 without any relief prompting ED visit. Pt. states he was earlier this week for same complaint and was discharged. Pt. states he took 2 days worth of solu- medrol but did not complete the course as he felt better already. Reports that he does have a nebulizer machine but no medications. Denies fever, chest pain, previous intubations, previous admissions for asthma. Past Medical History Reviewed: Historical Data, Nursing Documentation, Vital Signs Vital Signs: Last Vital Signs Temp 98 F 02/15/17 22:44 Pulse 102 H 02/15/17 22:44 Resp 22 02/15/17 23:00 BP 122/70 02/15/17 22:44 Pulse Ox 100 02/15/17 22:57 - Medical History PMH: Asthma, Back Problems, Pneumonia - Family History Family History: States: No Known Family Hx - Home Medications Home Medications: Ambulatory Orders Medication Instructions Recorded oxyCODONE/Acetaminophen [Percocet 1 ea PO Q8 PRN #10 tab 07/22/16 5/325 mg Tab] Methylprednisolone [Medrol Dosepak] 4 mg PO ASDIR #1 pkg 08/02/16 Albuterol HFA [Ventolin HFA 90 2 puff IH Q4H #1 puff 08/24/16 mcg/actuation (8 g)] Albuterol HFA [Ventolin HFA 90 1 - 2 puff IH Q4H PRN #1 bottle 10/09/16 mcg/actuation (8 g)] predniSONE [Prednisone] 40 mg PO DAILY #8 tab 10/09/16 Albuterol 0.5% [Albuterol 0.5% 2.5 mg IH Q6 PRN #1 packet 10/14/16 Inhal Stephanie (2.5 mg/0.5 ml) UD] Albuterol HFA [Ventolin HFA 90 1 - 2 puff IH Q6 PRN #1 inhaler 10/14/16 mcg/actuation (8 g)] Albuterol HFA [Ventolin HFA 90 2 puff IH [id number] #1 puff 12/11/16 mcg/actuation (8 g)] predniSONE [predniSONE Tab] 60 mg PO DAILY #9 tab 12/11/16 Albuterol HFA [Ventolin HFA 90 2 puff IH Q4H PRN #1 inh 12/26/16 mcg/actuation (8 g)] Prednisone 50 mg PO DAILY #4 tablet 12/26/16 Ibuprofen [Motrin] 600 mg PO TID 7 Days 01/05/17 Albuterol Sulfate [Proair Hfa] 0.09 mg IH Q6H PRN #2 inh 01/17/17 predniSONE [predniSONE Tab] 20 mg PO BID 5 Days 01/17/17 Albuterol HFA [Ventolin HFA 90 1 - 2 puff IH Q6 PRN #1 inhaler 02/10/17 mcg/actuation (8 g)] Methylprednisolone [Medrol Dosepak] 4 mg PO ASDIR #1 pkg 02/10/17 Albuterol 0.083% [Albuterol 0.083% 3 ml IH Q4 PRN #50 neb 02/15/17 Inhal Stephanie (2.5 mg/3 ml) UD] - Allergies Allergies/Adverse Reactions: Allergies Allergy/AdvReac Type Severity Reaction Status Date / Time No Known Allergies Allergy Verified 02/10/17 00:22 Review of Systems ROS Statement: Except As Marked, All Systems Reviewed And Found Negative Respiratory: Positive for: Wheezing Physical Exam - Physical Exam Appears: Positive for: Well, Non-toxic, No Acute Distress Skin: Positive for: Normal Color, Warm. Negative for: Rash Eye Exam: Positive for: EOMI, Normal appearance, PERRL ENT: Positive for: Normal ENT Inspection Neck: Positive for: Normal, Painless ROM Cardiovascular/Chest: Positive for: Regular Rate, Rhythm Respiratory: Positive for: Wheezing (b/l). Negative for: Accessory Muscle Use, Crackles, Rales, Rhonchi, Respiratory Distress Gastrointestinal/Abdominal: Positive for: Normal Exam, Soft. Negative for: Tenderness Extremity: Positive for: Normal ROM Neurologic/Psych: Positive for: Alert, Oriented. Negative for: Aphasia, Facial Droop - ECG O2 Sat by Pulse Oximetry: 100 - Progress ED Course And Treament: Duoneb x 3, prednisone 40mg PO given. Re-evaluation Time: 23:43 (Reports complete relief of dyspnea and wheezing. Lungs clear b/l. Pt. instructed to continue taking solu-medrol at home in its entirety. Pt. states he still has the rest of the solu-medrol pills at home. ) Condition: Re-examined, Improved Disposition - Clinical Impression Clinical Impression: Bronchospasm, acute - Patient ED Disposition Is Patient to be Admitted: No - Disposition Referrals: [facility] [Outside] Disposition: Routine/Home Disposition Time: 23:45 Condition: IMPROVED Prescriptions: Albuterol 0.083% [Albuterol 0.083% Inhal Stephanie (2.5 mg/3 ml) UD] 3 ml IH Q4 PRN # 50 neb PRN Reason: Wheezing Instructions: Bronchospasm (ED) Print Language: CHINESE
[2017-02-15] MEDS ORDERED: Albuterol-Ipratrop 3 mg / 0.5 (3 ml) UD ONE (22:59)
[2017-02-15 23:06] VITALS: RESP 22
== END 2017-02-15 23:45 | disposition home or self-care (01) ==
LOC: H.ER 22:42
DX: J98.01 Acute bronchospasm (principal)

== ENCOUNTER 2017-02-25 02:15 | Emergency (ER) | payer MEDICAID ==
[2017-02-25 02:16] VITALS: BMI 28.2
[2017-02-25 02:35] VITALS: TEMP 98.2
[2017-02-25] MEDS ORDERED: Albuterol-Ipratrop 3 mg / 0.5 (3 ml) UD INH STA ×3 (02:42→04:36)
--- NOTE | 2017-02-25 02:54 | ED PDOC ---
HPI: SOB/CHF/COPD Time Seen by Provider: 02/25/17 02:25 Chief Complaint (Nursing): Shortness Of Breath Chief Complaint (Provider): Shortness of breath History Per: Patient History/Exam Limitations: no limitations Onset/Duration Of Symptoms: Hrs Current Symptoms Are (Timing): Still Present Additional Complaint(s): The patient is a 41yo male, presents to the ED for evaluation of shortness of breath since earlier today. Patient reports he has a past medical history of asthma and uses a nebulizer treatment at home; patient states he used a nebulizer treatment prior to arrival with no relief. 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 He denies any other medical complaints. Past Medical History Reviewed: Historical Data, Nursing Documentation, Vital Signs Vital Signs: Last Vital Signs Temp 98.2 F 02/25/17 04:57 Pulse 93 H 02/25/17 04:57 Resp 16 02/25/17 04:57 BP 120/72 02/25/17 04:57 Pulse Ox 98 02/25/17 04:57 - Medical History PMH: Asthma, Back Problems, Pneumonia - Family History Family History: States: Unknown Family Hx - Social History Alcohol: Social - Home Medications Home Medications: Ambulatory Orders Medication Instructions Recorded oxyCODONE/Acetaminophen [Percocet 1 ea PO Q8 PRN #10 tab 07/22/16 5/325 mg Tab] Methylprednisolone [Medrol Dosepak] 4 mg PO ASDIR #1 pkg 08/02/16 Albuterol HFA [Ventolin HFA 90 2 puff IH Q4H #1 puff 08/24/16 mcg/actuation (8 g)] Albuterol HFA [Ventolin HFA 90 1 - 2 puff IH Q4H PRN #1 bottle 10/09/16 mcg/actuation (8 g)] predniSONE [Prednisone] 40 mg PO DAILY #8 tab 10/09/16 Albuterol 0.5% [Albuterol 0.5% 2.5 mg IH Q6 PRN #1 packet 10/14/16 Inhal Stephanie (2.5 mg/0.5 ml) UD] Albuterol HFA [Ventolin HFA 90 1 - 2 puff IH Q6 PRN #1 inhaler 10/14/16 mcg/actuation (8 g)] Albuterol HFA [Ventolin HFA 90 2 puff IH [id number] #1 puff 12/11/16 mcg/actuation (8 g)] predniSONE [predniSONE Tab] 60 mg PO DAILY #9 tab 12/11/16 Albuterol HFA [Ventolin HFA 90 2 puff IH Q4H PRN #1 inh 12/26/16 mcg/actuation (8 g)] Prednisone 50 mg PO DAILY #4 tablet 12/26/16 Ibuprofen [Motrin] 600 mg PO TID 7 Days 01/05/17 Albuterol Sulfate [Proair Hfa] 0.09 mg IH Q6H PRN #2 inh 01/17/17 predniSONE [predniSONE Tab] 20 mg PO BID 5 Days 01/17/17 Albuterol HFA [Ventolin HFA 90 1 - 2 puff IH Q6 PRN #1 inhaler 02/10/17 mcg/actuation (8 g)] Methylprednisolone [Medrol Dosepak] 4 mg PO ASDIR #1 pkg 02/10/17 Albuterol 0.083% [Albuterol 0.083% 3 ml IH Q4 PRN #50 neb 02/15/17 Inhal Stephanie (2.5 mg/3 ml) UD] Albuterol HFA [Ventolin HFA 90 1 - 2 puff IH Q4H PRN #1 bottle 02/25/17 mcg/actuation (8 g)] predniSONE [Prednisone] 40 mg PO DAILY #8 tab 02/25/17 - Allergies Allergies/Adverse Reactions: Allergies Allergy/AdvReac Type Severity Reaction Status Date / Time No Known Allergies Allergy Verified 02/25/17 02:31 Review of Systems ROS Statement: Except As Marked, All Systems Reviewed And Found Negative Respiratory: Positive for: Shortness of Breath Physical Exam - Reviewed Nursing Documentation Reviewed: Yes Vital Signs Reviewed: Yes - Physical Exam Appears: Positive for: Well, Non-toxic, No Acute Distress Head Exam: Positive for: ATRAUMATIC, NORMAL INSPECTION, NORMOCEPHALIC Skin: Positive for: Normal Color, Warm, DRY Eye Exam: Positive for: Normal appearance Neck: Positive for: Normal, Supple Cardiovascular/Chest: Positive for: Regular Rate, Rhythm Respiratory: Positive for: Wheezing Neurologic/Psych: Positive for: Alert, Oriented. Negative for: Motor/Sensory Deficits - ECG O2 Sat by Pulse Oximetry: 95 Medical Decision Making Medical Decision Making: Time: 244 Impression: Asthma exacerbation Plan: -- Duoneb 3ml INH -- Prednisone 50 mg po Reassess Time: 436 Patient reports feeling much better and is stable for discharge home. Scribe Attestation: Documented by Margaret Haas acting as a scribe for Lisa Goldberg MD. Provider Attestation: All medical record entries made by the Scribe were at my direction and personally dictated by me. I have reviewed the chart and agree that the record accurately reflects my personal performance of the history, physical exam, medical decision making, and the department course for this patient. I have also personally directed, reviewed, and agree with the discharge instructions and disposition. Disposition - Clinical Impression Clinical Impression: Asthma - Patient ED Disposition Is Patient to be Admitted: No Counseled Patient/Family Regarding: Studies Performed, Diagnosis, Need For Followup - Disposition Referrals: [facility] [Outside] [facility] [Outside] Disposition: Routine/Home Disposition Time: 04:00 Condition: IMPROVED Additional Instructions: follow up with your primary doctor in 1-2 days return to the ED with any worsening or concerning symptoms. Prescriptions: Albuterol HFA [Ventolin HFA 90 mcg/actuation (8 g)] 1 - 2 puff IH Q4H PRN #1 bottle PRN Reason: Wheezing predniSONE [Prednisone] 40 mg PO DAILY #8 tab Instructions: Asthma (ED) Forms: [employer] ([place]alian)
[2017-02-25] MEDS ORDERED: Albuterol-Ipratrop 3 mg / 0.5 (3 ml) UD ONE (02:58)
[2017-02-25 04:59] VITALS: BP 120/72; PULSE 93; RESP 16
[2017-02-26 04:22] VITALS: O2SAT 95
== END 2017-02-25 04:59 | disposition home or self-care (01) ==
LOC: H.ER 02:15
DX: J45.901 Unspecified asthma with (acute) exacerbation (principal)

== ENCOUNTER 2017-03-04 15:39 | Emergency (ER) | payer MEDICAID ==
[2017-03-04 15:39] VITALS: BMI 28.2
[2017-03-04 15:53] VITALS: BP 124/111; PULSE 109; RESP 22; TEMP 98
[2017-03-04] MEDS ORDERED: Albuterol-Ipratrop 3 mg / 0.5 (3 ml) UD INH STA ×3 (16:18→16:19)
[2017-03-04] MEDS ORDERED: Albuterol-Ipratrop 3 mg / 0.5 (3 ml) UD ONE (16:19)
[2017-03-04 16:31] VITALS: O2SAT 99
--- NOTE | 2017-03-04 16:47 | ED PDOC ---
HPI: SOB/CHF/COPD Time Seen by Provider: 03/04/17 16:10 Chief Complaint (Nursing): Shortness Of Breath Chief Complaint (Provider): Shortness Of Breath History Per: Patient History/Exam Limitations: no limitations Onset/Duration Of Symptoms: Days (x2) Current Symptoms Are (Timing): Still Present Additional Complaint(s): Kalyan Ryan is a 41 year old male with previous medical history of asthma, who presents to the emergency department with a complaint of shortness of breath associated with cough and white sputum production ongoing for 2 days. Denied any fever, chills, or chest pain. PMD: Higinio Lyles MD Past Medical History Reviewed: Historical Data, Nursing Documentation, Vital Signs Vital Signs: Last Vital Signs Temp 98 F 03/04/17 15:51 Pulse 109 H 03/04/17 15:51 Resp 22 03/04/17 15:51 BP 124/111 H 03/04/17 15:51 Pulse Ox 99 03/04/17 18:15 - Medical History PMH: Asthma, Back Problems, Migraine, Pneumonia - Family History Family History: States: Unknown Family Hx - Social History Current smoker - smoking cessation education provided: No Alcohol: Occasional Drugs: Cannabis, Cocaine, Opiates (heroine) - Home Medications Home Medications: Ambulatory Orders Medication Instructions Recorded oxyCODONE/Acetaminophen [Percocet 1 ea PO Q8 PRN #10 tab 07/22/16 5/325 mg Tab] Methylprednisolone [Medrol Dosepak] 4 mg PO ASDIR #1 pkg 08/02/16 Albuterol HFA [Ventolin HFA 90 2 puff IH Q4H #1 puff 08/24/16 mcg/actuation (8 g)] Albuterol HFA [Ventolin HFA 90 1 - 2 puff IH Q4H PRN #1 bottle 10/09/16 mcg/actuation (8 g)] predniSONE [Prednisone] 40 mg PO DAILY #8 tab 10/09/16 Albuterol 0.5% [Albuterol 0.5% 2.5 mg IH Q6 PRN #1 packet 10/14/16 Inhal Stephanie (2.5 mg/0.5 ml) UD] Albuterol HFA [Ventolin HFA 90 1 - 2 puff IH Q6 PRN #1 inhaler 10/14/16 mcg/actuation (8 g)] Albuterol HFA [Ventolin HFA 90 2 puff IH [id number] #1 puff 12/11/16 mcg/actuation (8 g)] predniSONE [predniSONE Tab] 60 mg PO DAILY #9 tab 12/11/16 Albuterol HFA [Ventolin HFA 90 2 puff IH Q4H PRN #1 inh 12/26/16 mcg/actuation (8 g)] Prednisone 50 mg PO DAILY #4 tablet 12/26/16 Ibuprofen [Motrin] 600 mg PO TID 7 Days 01/05/17 Albuterol Sulfate [Proair Hfa] 0.09 mg IH Q6H PRN #2 inh 01/17/17 predniSONE [predniSONE Tab] 20 mg PO BID 5 Days 01/17/17 Albuterol HFA [Ventolin HFA 90 1 - 2 puff IH Q6 PRN #1 inhaler 02/10/17 mcg/actuation (8 g)] Methylprednisolone [Medrol Dosepak] 4 mg PO ASDIR #1 pkg 02/10/17 Albuterol 0.083% [Albuterol 0.083% 3 ml IH Q4 PRN #50 neb 02/15/17 Inhal Stephanie (2.5 mg/3 ml) UD] Albuterol HFA [Ventolin HFA 90 1 - 2 puff IH Q4H PRN #1 bottle 02/25/17 mcg/actuation (8 g)] predniSONE [Prednisone] 40 mg PO DAILY #8 tab 02/25/17 Albuterol 0.083% [Albuterol 0.083% 3 ml IH Q6H PRN #30 neb 03/04/17 Inhal Stephanie (2.5 mg/3 ml) UD] Albuterol HFA [Ventolin HFA 90 2 puff IH [id number] PRN #1 bottle 03/04/17 mcg/actuation (8 g)] Azithromycin [Zithromax] 250 mg PO DAILY #4 tab 03/04/17 Prednisone 50 mg PO DAILY #4 tab 03/04/17 - Allergies Allergies/Adverse Reactions: Allergies Allergy/AdvReac Type Severity Reaction Status Date / Time No Known Allergies Allergy Verified 02/25/17 02:31 Review of Systems ROS Statement: Except As Marked, All Systems Reviewed And Found Negative Constitutional: Negative for: Fever, Chills Cardiovascular: Negative for: Chest Pain Respiratory: Positive for: Cough (with white sputum ), Shortness of Breath Physical Exam - Reviewed Nursing Documentation Reviewed: Yes Vital Signs Reviewed: Yes - Physical Exam Appears: Positive for: Well, Non-toxic, No Acute Distress Head Exam: Positive for: ATRAUMATIC, NORMAL INSPECTION, NORMOCEPHALIC Skin: Positive for: Normal Color Cardiovascular/Chest: Positive for: Regular Rate, Rhythm Respiratory: Positive for: Wheezing (bilateral), Respiratory Distress (mild). 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 Patient will be discharged home with Rx for Ventolin HFA, Albuterol INH, Zithromax and Prednisone. Counseling was provided and all questions were answered regarding diagnosis and need for follow up with PCP. There is agreement to discharge plan. Return if symptoms persist or worsen. Clinical Impression: Asthma with bronchitis Scribe Attestation: Documented by Keisha Torres, acting as a scribe for Yazmin Thomas MD. Provider Scribe Attestation: All medical record entries made by the Scribe were at my direction and personally dictated by me. I have reviewed the chart and agree that the record accurately reflects my personal performance of the history, physical exam, medical decision making, and the department course for this patient. I have also personally directed, reviewed, and agree with the discharge instructions and disposition. Disposition - Clinical Impression Clinical Impression: Asthma with bronchitis - Patient ED Disposition Is Patient to be Admitted: No Doctor Will See Patient In The: Office Counseled Patient/Family Regarding: Studies Performed, Diagnosis, Need For Followup, Rx Given - Disposition Referrals: Higinio Lyles MD [Family Provider] - Disposition: Routine/Home Disposition Time: 18:50 Condition: IMPROVED Prescriptions: Albuterol HFA [Ventolin HFA 90 mcg/actuation (8 g)] 2 puff IH [id number] PRN #1 bottle PRN Reason: Shortness Of Breath Albuterol 0.083% [Albuterol 0.083% Inhal Stephanie (2.5 mg/3 ml) UD] 3 ml IH Q6H PRN # 30 neb PRN Reason: Shortness Of Breath Azithromycin [Zithromax] 250 mg PO DAILY #4 tab Prednisone 50 mg PO DAILY #4 tab Instructions: Asthma (ED), Acute Bronchitis (ED) Forms: [employer] ([place]i)
[2017-03-04 16:57] LABS: BASO # 0.2 K/uL (0.0-0.2); BASO % 0.9 % (0.0-2.0); EOS # 2.1 K/uL (0.0-0.7); HEMOGLOBIN 13.3 g/dL (12.0-18.0); LYMPH # 1.6 K/uL (1.0-4.3); MEAN CELL VOLUME 93.6 fl (80.0-94.0); MEAN CORPUSCULAR HGB CONC 33.1 g/dL (33.0-37.0); MEAN PLATELET VOLUME 7.8 fl (7.2-11.7); MONO # 1.7 K/uL (0.0-0.8); MONO % 10.6 % (0.0-10.0); NEUT # 10.7 K/uL (1.8-7.0); NEUT % 65.5 % (50.0-75.0); RBC 4.31 Mil/uL (4.40-5.90); RED CELL DISTRIBUTION WIDTH 12.6 % (11.5-14.5)
[2017-03-04 17:05] LABS: WHITE BLOOD COUNT 16.3 K/uL (4.8-10.8)
[2017-03-04 17:30] LABS: ALB/GLOB RATIO 1.9 (1.0-2.1); ALBUMIN 4.5 g/dL (3.5-5.0); ALT/SGPT 53 U/L (21-72); AST/SGOT 38 U/L (17-59); BLOOD UREA NITROGEN 22 mg/dl (9-20); CALCIUM 9.2 mg/dL (8.4-10.2); GFR AFRICAN-AMERICAN > 60; GFR NON-AFRICAN AMERICAN > 60
[2017-03-04] MEDS ORDERED: Azithromycin 500 MG in Sodium Chloride 0.9% 250 ML IV STA (17:35)
[2017-03-04] MEDS ORDERED: Azithromycin 500 MG IV IVPB ONE (17:51)
--- NOTE | 2017-03-04 18:47 | RAD ---
HISTORY: SOB COMPARISON: 01/05/2017. FINDINGS: LUNGS: No active pulmonary disease. PLEURA: No significant pleural effusion identified, no pneumothorax apparent. CARDIOVASCULAR: Normal. OSSEOUS STRUCTURES: No significant abnormalities. VISUALIZED UPPER ABDOMEN: Normal. OTHER FINDINGS: None. IMPRESSION: No active disease. No significant interval change compared to the prior examination(s).
--- NOTE | 2017-03-05 07:50 | CARD ---
APPROVED REPORT EKG Measurement Heart [id number] CO [id number] <Conclusion> Normal sinus rhythm Right atrial enlargement Borderline ECG
== END 2017-03-04 18:53 | disposition home or self-care (01) ==
LOC: H.ER 15:39
DX: J40 Bronchitis, not specified as acute or chronic (principal)

== ENCOUNTER 2017-05-18 20:11 | Emergency (ER) | payer MEDICAID ==
[2017-05-18 20:11] VITALS: BMI 28.2
[2017-05-18 20:53] VITALS: BP 139/72; PULSE 98; RESP 17; TEMP 98
[2017-05-18 20:59] VITALS: O2SAT 98
--- NOTE | 2017-05-18 20:59 | ED PDOC ---
HPI: Psych/Substance Abuse Time Seen by Provider: 05/18/17 20:21 Chief Complaint (Nursing): Substance Abuse Chief Complaint (Provider): heroin use History Per: Patient History/Exam Limitations: no limitations Onset/Duration Of Symptoms: Hrs Suicide/Self Injury Attempted (Context): None Additional Complaint(s): Patient is a 41 y/o male with a past medical history of asthma and social history of heroin abuse, who presents to the ED admitting to using 12 bags of heroin today. Patient claims family found him in apartment unresponsive but that he woke up. He reports family told him that he wasn't breathing well but upon arrival denies any difficulty breathing. He notes that he feels depressed at his mother's passing a few years ago, though denies suicidal or homicidal ideation. PCP: Provider TOMMY, clinic Past Medical History Reviewed: Historical Data, Nursing Documentation, Vital Signs Vital Signs: Last Vital Signs Temp 98 F 05/18/17 20:13 Pulse 114 H 05/18/17 20:13 Resp 22 05/18/17 20:13 BP 112/74 05/18/17 20:13 Pulse Ox 98 05/18/17 20:13 - Medical History PMH: Asthma, Back Problems, Migraine, Pneumonia - Surgical History Surgical History: No Surg Hx - Family History Family History: States: No Known Family Hx, Unknown Family Hx - Social History Current smoker - smoking cessation education provided: No Ex-Smoker (has not smoked in the last 12 months): No Alcohol: Occasional Drugs: Cannabis, Cocaine, Other (heroin) - Home Medications Home Medications: Ambulatory Orders Medication Instructions Recorded oxyCODONE/Acetaminophen [Percocet 1 ea PO Q8 PRN #10 tab 07/22/16 5/325 mg Tab] Methylprednisolone [Medrol Dosepak] 4 mg PO ASDIR #1 pkg 08/02/16 Albuterol HFA [Ventolin HFA 90 2 puff IH Q4H #1 puff 08/24/16 mcg/actuation (8 g)] Albuterol HFA [Ventolin HFA 90 1 - 2 puff IH Q4H PRN #1 bottle 10/09/16 mcg/actuation (8 g)] predniSONE [Prednisone] 40 mg PO DAILY #8 tab 10/09/16 Albuterol 0.5% [Albuterol 0.5% 2.5 mg IH Q6 PRN #1 packet 10/14/16 Inhal Stephanie (2.5 mg/0.5 ml) UD] Albuterol HFA [Ventolin HFA 90 1 - 2 puff IH Q6 PRN #1 inhaler 10/14/16 mcg/actuation (8 g)] Albuterol HFA [Ventolin HFA 90 2 puff IH [id number] #1 puff 12/11/16 mcg/actuation (8 g)] predniSONE [predniSONE Tab] 60 mg PO DAILY #9 tab 12/11/16 Albuterol HFA [Ventolin HFA 90 2 puff IH Q4H PRN #1 inh 12/26/16 mcg/actuation (8 g)] Prednisone 50 mg PO DAILY #4 tablet 12/26/16 Ibuprofen [Motrin] 600 mg PO TID 7 Days tab 01/05/17 Albuterol Sulfate [Proair Hfa] 0.09 mg IH Q6H PRN #2 inh 01/17/17 predniSONE [predniSONE Tab] 20 mg PO BID 5 Days tab 01/17/17 Albuterol HFA [Ventolin HFA 90 1 - 2 puff IH Q6 PRN #1 inhaler 02/10/17 mcg/actuation (8 g)] Methylprednisolone [Medrol Dosepak] 4 mg PO ASDIR #1 pkg 02/10/17 Albuterol 0.083% [Albuterol 0.083% 3 ml IH Q4 PRN #50 neb 02/15/17 Inhal Stephanie (2.5 mg/3 ml) UD] Albuterol HFA [Ventolin HFA 90 1 - 2 puff IH Q4H PRN #1 bottle 02/25/17 mcg/actuation (8 g)] predniSONE [Prednisone] 40 mg PO DAILY #8 tab 02/25/17 Albuterol 0.083% [Albuterol 0.083% 3 ml IH Q6H PRN #30 neb 03/04/17 Inhal Stephanie (2.5 mg/3 ml) UD] Albuterol HFA [Ventolin HFA 90 2 puff IH [id number] PRN #1 bottle 03/04/17 mcg/actuation (8 g)] Azithromycin [Zithromax] 250 mg PO DAILY #4 tab 03/04/17 Prednisone 50 mg PO DAILY #4 tab 03/04/17 - Allergies Allergies/Adverse Reactions: Allergies Allergy/AdvReac Type Severity Reaction Status Date / Time No Known Allergies Allergy Verified 02/25/17 02:31 Review of Systems ROS Statement: Except As Marked, All Systems Reviewed And Found Negative Respiratory: Negative for: Shortness of Breath Psych: Positive for: Depression. Negative for: Suicidal ideation Physical Exam - Reviewed Nursing Documentation Reviewed: Yes Vital Signs Reviewed: Yes - Physical Exam Appears: Positive for: No Acute Distress Head Exam: Positive for: ATRAUMATIC, NORMOCEPHALIC Skin: Positive for: Normal Color, Warm, Dry Eye Exam: Positive for: PERRL, Other (pinpoint pupils) Neck: Positive for: Normal, Painless ROM, Supple Cardiovascular/Chest: Positive for: Regular Rate, Rhythm. Negative for: Murmur Respiratory: Positive for: Normal Breath Sounds, Other (Lungs clear to auscultation). Negative for: Respiratory Distress Gastrointestinal/Abdominal: Positive for: Normal Exam, Soft. Negative for: Tenderness Back: Positive for: Normal Inspection. Negative for: L CVA Tenderness, R CVA Tenderness, Vertebral Tenderness Extremity: Positive for: Normal ROM. Negative for: Pedal Edema, Deformity Neurologic/Psych: Positive for: Alert, Oriented (x3). Negative for: Motor/ Sensory Deficits - ECG O2 Sat by Pulse Oximetry: 98 (RA) Pulse Ox Interpretation: Normal Medical Decision Making Medical Decision Making: Time: 2020 Initial Impression: Heroin use Time: 2045 Clinical Impression: Heroin abuse Upon provider evaluation patient is medically stable, and requires no further treatment in the ED at this time. Patient will be discharged home. Counseling was provided and all questions were answered regarding diagnosis and need for follow up with Higinio Lyles MD (family provider). There is agreement to discharge plan. Return if symptoms persist or worsen. Scribe Attestation: Documented by Davie Donato, acting as a scribe for Orlando Castaneda MD Provider Scribe Attestation: All medical record entries made by the Scribe were at my direction and personally dictated by me. I have reviewed the chart and agree that the record accurately reflects my personal performance of the history, physical exam, medical decision making, and the department course for this patient. I have also personally directed, reviewed, and agree with the discharge instructions and disposition. Disposition - Clinical Impression Clinical Impression: Heroin abuse - Patient ED Disposition Is Patient to be Admitted: No - Disposition Referrals: Higinio Lyles MD [Family Provider] - Disposition: Routine/Home Disposition Time: 21:45 Condition: STABLE Instructions: Narcotic Abuse (ED) Forms: [employer] (L[place]ian)
== END 2017-05-18 20:54 | disposition home or self-care (01) ==
LOC: H.ER 20:11
DX: F11.10 Opioid abuse, uncomplicated (principal); J45.909 Unspecified asthma, uncomplicated; Z87.891 Personal history of nicotine dependence; Z86.59 Personal history of other mental and behavioral disorders

== ENCOUNTER 2017-06-09 19:26 | Emergency (ER) | payer MEDICAID ==
[2017-06-09 19:27] VITALS: BMI 28.2
[2017-06-09 19:40] VITALS: BP 119/86; PULSE 97; RESP 18; TEMP 97; O2SAT 97
--- NOTE | 2017-06-09 21:45 | ED PDOC ---
HPI: Psych/Substance Abuse Time Seen by Provider: 06/09/17 19:47 Chief Complaint (Nursing): Psychiatric Evaluation Chief Complaint (Provider): Erratic Behavior History Per: Patient History/Exam Limitations: no limitations Onset/Duration Of Symptoms: Hrs Current Symptoms Are (Timing): Still Present Suicide/Self Injury Attempted (Context): None Modifying Factor(s): Alcohol, Other (heroin) Associated Symptoms: denies: Suicidal Thoughts Additional Complaint(s): Kalyan Ryan, a 41 year old male, with a past medical history of asthma and heroin abuse is brought into the ED for behaving erratically and trying to go through his apartment window. The patient states that his significant other called 911. He reports that his mother recently in [place] due to complication with her diabetes because of her inability to get medically care due to the hurricane. The patient states that he is upset about the situation but denies homicidal and suicidal ideations. Patient admits to heroin and alcohol abuse. Past Medical History Reviewed: Historical Data, Nursing Documentation, Vital Signs Vital Signs: Last Vital Signs Temp 97.0 F L 06/09/17 19:37 Pulse 97 H 06/09/17 19:37 Resp 18 06/09/17 19:37 BP 119/86 06/09/17 19:37 Pulse Ox 97 06/09/17 19:37 - Medical History PMH: Asthma, Back Problems, Migraine, Pneumonia - Surgical History Surgical History: No Surg Hx - Family History Family History: States: Unknown Family Hx - Living Arrangements Living Arrangements: Alone - Social History Current smoker - smoking cessation education provided: Yes Ex-Smoker (has not smoked in the last 12 months): Yes Alcohol: Occasional Drugs: Other (heroin) - Home Medications Home Medications: Ambulatory Orders Medication Instructions Recorded oxyCODONE/Acetaminophen [Percocet 1 ea PO Q8 PRN #10 tab 07/22/16 5/325 mg Tab] Methylprednisolone [Medrol Dosepak] 4 mg PO ASDIR #1 pkg 08/02/16 Albuterol HFA [Ventolin HFA 90 2 puff IH Q4H #1 puff 08/24/16 mcg/actuation (8 g)] Albuterol HFA [Ventolin HFA 90 1 - 2 puff IH Q4H PRN #1 bottle 10/09/16 mcg/actuation (8 g)] predniSONE [Prednisone] 40 mg PO DAILY #8 tab 10/09/16 Albuterol 0.5% [Albuterol 0.5% 2.5 mg IH Q6 PRN #1 packet 10/14/16 Inhal Stephanie (2.5 mg/0.5 ml) UD] Albuterol HFA [Ventolin HFA 90 1 - 2 puff IH Q6 PRN #1 inhaler 10/14/16 mcg/actuation (8 g)] Albuterol HFA [Ventolin HFA 90 2 puff IH [id number] #1 puff 12/11/16 mcg/actuation (8 g)] predniSONE [predniSONE Tab] 60 mg PO DAILY #9 tab 12/11/16 Albuterol HFA [Ventolin HFA 90 2 puff IH Q4H PRN #1 inh 12/26/16 mcg/actuation (8 g)] Prednisone 50 mg PO DAILY #4 tablet 12/26/16 Ibuprofen [Motrin] 600 mg PO TID 7 Days tab 01/05/17 Albuterol Sulfate [Proair Hfa] 0.09 mg IH Q6H PRN #2 inh 01/17/17 predniSONE [predniSONE Tab] 20 mg PO BID 5 Days tab 01/17/17 Albuterol HFA [Ventolin HFA 90 1 - 2 puff IH Q6 PRN #1 inhaler 02/10/17 mcg/actuation (8 g)] Methylprednisolone [Medrol Dosepak] 4 mg PO ASDIR #1 pkg 02/10/17 Albuterol 0.083% [Albuterol 0.083% 3 ml IH Q4 PRN #50 neb 02/15/17 Inhal Stephanie (2.5 mg/3 ml) UD] Albuterol HFA [Ventolin HFA 90 1 - 2 puff IH Q4H PRN #1 bottle 02/25/17 mcg/actuation (8 g)] predniSONE [Prednisone] 40 mg PO DAILY #8 tab 02/25/17 Albuterol 0.083% [Albuterol 0.083% 3 ml IH Q6H PRN #30 neb 03/04/17 Inhal Stephanie (2.5 mg/3 ml) UD] Albuterol HFA [Ventolin HFA 90 2 puff IH [id number] PRN #1 bottle 03/04/17 mcg/actuation (8 g)] Azithromycin [Zithromax] 250 mg PO DAILY #4 tab 03/04/17 Prednisone 50 mg PO DAILY #4 tab 03/04/17 - Allergies Allergies/Adverse Reactions: Allergies Allergy/AdvReac Type Severity Reaction Status Date / Time No Known Allergies Allergy Verified 02/25/17 02:31 Review of Systems ROS Statement: Except As Marked, All Systems Reviewed And Found Negative Constitutional: Positive for: Other (patient denies any medical complaints) Physical Exam - Reviewed Nursing Documentation Reviewed: Yes Vital Signs Reviewed: Yes - Physical Exam Appears: Positive for: Non-toxic, No Acute Distress Head Exam: Positive for: ATRAUMATIC, NORMAL INSPECTION, NORMOCEPHALIC Skin: Positive for: Normal Color, Warm, Dry. Negative for: Rash Eye Exam: Positive for: Normal appearance, EOMI, PERRL. Negative for: Nystagmus ENT: Positive for: Normal ENT Inspection Neck: Positive for: Normal, Painless ROM, Supple Cardiovascular/Chest: Positive for: Regular Rate, Rhythm, Chest Non Tender. Negative for: Tachycardia Respiratory: Positive for: Normal Breath Sounds. Negative for: Wheezing, Respiratory Distress Gastrointestinal/Abdominal: Positive for: Normal Exam, Bowel Sounds, Soft. Negative for: Guarding, Rebound Back: Positive for: Normal Inspection. Negative for: L CVA Tenderness, R CVA Tenderness Extremity: Positive for: Normal ROM. Negative for: Tenderness, Deformity, Swelling Lymphatic: Positive for: Normal Exam. Negative for: Adenopathy Neurologic/Psych: Positive for: Alert, Oriented, Gait - ECG O2 Sat by Pulse Oximetry: 97 (RA) Pulse Ox Interpretation: Normal Medical Decision Making Medical Decision Makin Initial Impression 41 y/o male presenting with erratic behaviour in setting of known alcohol and heroin abuse Initial Plan: * Crisis evaluation * Reevaluation 2144 Patient left before treatment could be completed. Diagnosis: Heroin Abuse Condition: Stable Scribe Attestation Documented by Barbara Arthur acting as a scribe for Kahlil Fairchild MD. Provider Attestation All medical record entries made by the Scribe were at my direction and personally dictated by me. I have reviewed the chart and agree that the record accurately reflects my personal performance of the history, physical exam, medical decision making, and the department course for this patient. I have also personally directed, reviewed, and agree with the discharge instructions and disposition. Disposition - Clinical Impression Clinical Impression: Heroin abuse - Patient ED Disposition Is Patient to be Admitted: No - Disposition Disposition: Left W/O Treatment Disposition Time: 21:45 Condition: STABLE Forms: [employer] (Citizen Of [place]) - POA Present On Arrival: None
[2017-06-10] MEDS ORDERED: Albuterol-Ipratrop 3 mg / 0.5 (3 ml) UD ONE (13:06)
[2017-06-10] MEDS ORDERED: Magnesium Sulfate 2 gm/50 ml 2 GM/50 ML BAG ONE (13:07)
== END 2017-06-09 21:00 | disposition left against medical advice (07) ==
LOC: H.ER 19:26
DX: F11.10 Opioid abuse, uncomplicated (principal); J45.909 Unspecified asthma, uncomplicated; F17.200 Nicotine dependence, unspecified, uncomplicated; Z00.8 Encounter for other general examination

== ENCOUNTER 2017-06-10 12:46 | Emergency (ER) | payer MEDICAID ==
[2017-06-10 12:46] VITALS: BMI 28.2
[2017-06-10] MEDS ORDERED: Albuterol-Ipratrop 3 mg / 0.5 (3 ml) UD IH STA ×2 (12:59)
--- NOTE | 2017-06-10 13:14 | ED PDOC ---
HPI: SOB/CHF/COPD Time Seen by Provider: 06/10/17 12:56 Chief Complaint (Nursing): Shortness Of Breath Chief Complaint (Provider): Shortness of breath History Per: Patient History/Exam Limitations: no limitations Onset/Duration Of Symptoms: Days (x1, last night) Current Symptoms Are (Timing): Still Present Initiating Event: Out Of Medications Current Respiratory Medications: Albuterol, Prednisone Severity: None Pain Scale Rating Of: 0 Associated Symptoms: Productive Cough (clear sputum). denies: Fever, Chest Pain Additional Complaint(s): Kalyan Ryan is a 41 year old male, with a past medical history of asthma, who presents to the emergency department complaining of shortness of breath associated with wheezing, and productive cough with clear sputum onset since last night. Patient states he ran out of asthma inhaler a few days ago. He denies any fever or chest pain. No further medical complaints. PMD: None provided. Past Medical History Reviewed: Historical Data, Nursing Documentation, Vital Signs Vital Signs: Last Vital Signs Temp 98.0 F 06/10/17 12:52 Pulse 123 H 06/10/17 12:52 Resp 26 H 06/10/17 13:36 BP 145/100 H 06/10/17 12:52 Pulse Ox 94 L 06/10/17 14:47 - Medical History PMH: Asthma, Back Problems, Migraine, Pneumonia - Family History Family History: States: Unknown Family Hx - Home Medications Home Medications: Ambulatory Orders Medication Instructions Recorded oxyCODONE/Acetaminophen [Percocet 1 ea PO Q8 PRN #10 tab 07/22/16 5/325 mg Tab] Methylprednisolone [Medrol Dosepak] 4 mg PO ASDIR #1 pkg 08/02/16 Albuterol HFA [Ventolin HFA 90 2 puff IH Q4H #1 puff 08/24/16 mcg/actuation (8 g)] Albuterol HFA [Ventolin HFA 90 1 - 2 puff IH Q4H PRN #1 bottle 10/09/16 mcg/actuation (8 g)] predniSONE [Prednisone] 40 mg PO DAILY #8 tab 10/09/16 Albuterol 0.5% [Albuterol 0.5% 2.5 mg IH Q6 PRN #1 packet 10/14/16 Inhal Stephanie (2.5 mg/0.5 ml) UD] Albuterol HFA [Ventolin HFA 90 1 - 2 puff IH Q6 PRN #1 inhaler 10/14/16 mcg/actuation (8 g)] Albuterol HFA [Ventolin HFA 90 2 puff IH [id number] #1 puff 12/11/16 mcg/actuation (8 g)] predniSONE [predniSONE Tab] 60 mg PO DAILY #9 tab 12/11/16 Albuterol HFA [Ventolin HFA 90 2 puff IH Q4H PRN #1 inh 12/26/16 mcg/actuation (8 g)] Prednisone 50 mg PO DAILY #4 tablet 12/26/16 Ibuprofen [Motrin] 600 mg PO TID 7 Days tab 01/05/17 Albuterol Sulfate [Proair Hfa] 0.09 mg IH Q6H PRN #2 inh 01/17/17 predniSONE [predniSONE Tab] 20 mg PO BID 5 Days tab 01/17/17 Albuterol HFA [Ventolin HFA 90 1 - 2 puff IH Q6 PRN #1 inhaler 02/10/17 mcg/actuation (8 g)] Methylprednisolone [Medrol Dosepak] 4 mg PO ASDIR #1 pkg 02/10/17 Albuterol 0.083% [Albuterol 0.083% 3 ml IH Q4 PRN #50 neb 02/15/17 Inhal Stephanie (2.5 mg/3 ml) UD] Albuterol HFA [Ventolin HFA 90 1 - 2 puff IH Q4H PRN #1 bottle 02/25/17 mcg/actuation (8 g)] predniSONE [Prednisone] 40 mg PO DAILY #8 tab 02/25/17 Albuterol 0.083% [Albuterol 0.083% 3 ml IH Q6H PRN #30 neb 03/04/17 Inhal Stephanie (2.5 mg/3 ml) UD] Albuterol HFA [Ventolin HFA 90 2 puff IH [id number] PRN #1 bottle 03/04/17 mcg/actuation (8 g)] Azithromycin [Zithromax] 250 mg PO DAILY #4 tab 03/04/17 Prednisone 50 mg PO DAILY #4 tab 03/04/17 Albuterol 0.083% [Albuterol 3 ml IH Q8 #1 neb 06/10/17 Sulfate 3 Ml] Albuterol HFA [Ventolin HFA 90 2 puff IH Q4H #1 puff 06/10/17 mcg/actuation (8 g)] predniSONE [predniSONE Tab] 10 mg PO TID #15 tab 06/10/17 - Allergies Allergies/Adverse Reactions: Allergies Allergy/AdvReac Type Severity Reaction Status Date / Time No Known Allergies Allergy Verified 06/10/17 12:52 Review of Systems ROS Statement: Except As Marked, All Systems Reviewed And Found Negative Constitutional: Negative for: Fever Cardiovascular: Negative for: Chest Pain Respiratory: Positive for: Cough (prouctive), Shortness of Breath (with wheezing ), Sputum (clear) Physical Exam - Reviewed Nursing Documentation Reviewed: Yes Vital Signs Reviewed: Yes - Physical Exam Appears: Positive for: Non-toxic Head Exam: Positive for: ATRAUMATIC, NORMAL INSPECTION, NORMOCEPHALIC Skin: Positive for: Normal Color, Warm, Dry Eye Exam: Positive for: EOMI, Normal appearance, PERRL Neck: Positive for: Normal, Painless ROM, Supple Cardiovascular/Chest: Positive for: Regular Rate, Rhythm, Tachycardia Respiratory: Positive for: Accessory Muscle Use (mild), Rhonchi, Wheezing ( expiratory), Respiratory Distress (mild to moderate) Gastrointestinal/Abdominal: Positive for: Normal Exam, Bowel Sounds, Soft. Negative for: Tenderness, Guarding, Rebound Extremity: Positive for: Normal ROM. Negative for: Deformity, Swelling (calf) Neurologic/Psych: Positive for: Alert, Oriented (x3). Negative for: bacteriology research assistant II-XII (no focal deficits.), Motor/Sensory Deficits - Laboratory Results Result Diagrams: 06/10/17 13:38 06/10/17 13:38 - ECG O2 Sat by Pulse Oximetry: 94 (RA) Pulse Ox Interpretation: Abnormal - Progress Re-evaluation Time: 15:23 Condition: Improved (Pt wants to go home) Medical Decision Making Medical Decision Making: Initial Plan: --Comp Metabolic Panel --CBC w/ differential --Chest two views (PA/LAT) [RAD] --Duoneb 3 ml IH --Magnesium Sulfate 2gm in 50 ml IV --methylprednisolone 125 mg IVP --Vapotherm --Peak flow pre/post Tx --reevaluation 13:59 Chest x-ray reviewed. Findings noted as follows: FINDINGS: LUNGS: No active pulmonary disease. PLEURA: No significant pleural effusion identified, no pneumothorax apparent. CARDIOVASCULAR: Normal. OSSEOUS STRUCTURES: No significant abnormalities. VISUALIZED UPPER ABDOMEN: The right hemidiaphragm is now well defined. OTHER FINDINGS: None. IMPRESSION: No interval acute cardiopulmonary disease appreciated bilaterally. Scribe Attestation: Documented by Brady Obregon and Patricia Huntley, acting as scribes for Major Vincent MD. Provider Scribe Attestation: All medical record entries made by the Scribe were at my direction and personally dictated by me. I have reviewed the chart and agree that the record accurately reflects my personal performance of the history, physical exam, medical decision making, and the department course for this patient. I have also personally directed, reviewed, and agree with the discharge instructions and disposition. Disposition - Clinical Impression Clinical Impression: Asthma exacerbation - Patient ED Disposition Is Patient to be Admitted: No Counseled Patient/Family Regarding: Studies Performed, Diagnosis, Need For Followup, Rx Given - Disposition Referrals: LTAC[facility] [Outside] Disposition: Routine/Home Disposition Time: 15:24 Condition: FAIR Prescriptions: Albuterol 0.083% [Albuterol Sulfate 3 Ml] 3 ml IH Q8 #1 neb Albuterol HFA [Ventolin HFA 90 mcg/actuation (8 g)] 2 puff IH Q4H #1 puff predniSONE [predniSONE Tab] 10 mg PO TID #15 tab Instructions: Asthma (ED) Forms: [employer] (Yi)
[2017-06-10] MEDS ORDERED: Magnesium Sulfate 2 gm/50 ml 2 GM/50 ML BAG IV ONE (13:15)
[2017-06-10 13:53] LABS: BASO # 0.2 K/uL (0.0-0.2); BASO % 1.4 % (0.0-2.0); EOS % 8.4 % (0.0-4.0); LYMPH # 2.5 K/uL (1.0-4.3); LYMPH % 20.4 % (20.0-40.0); MEAN CELL VOLUME 92.5 fl (80.0-94.0); MEAN CORPUSCULAR HEMOGLOBIN 31.3 pg (27.0-31.0); MEAN CORPUSCULAR HGB CONC 33.8 g/dL (33.0-37.0); MONO # 1.2 K/uL (0.0-0.8); MONO % 9.5 % (0.0-10.0); NEUT # 7.4 K/uL (1.8-7.0); NEUT % 60.3 % (50.0-75.0); NRBC % 0.3 % (0.0-0.0); RED CELL DISTRIBUTION WIDTH 12.1 % (11.5-14.5); WHITE BLOOD COUNT 12.3 K/uL (4.8-10.8)
--- NOTE | 2017-06-10 14:01 | RAD ---
HISTORY: cough COMPARISON: Chest radiograph 03/04/2017. FINDINGS: LUNGS: No active pulmonary disease. PLEURA: No significant pleural effusion identified, no pneumothorax apparent. CARDIOVASCULAR: Normal. OSSEOUS STRUCTURES: No significant abnormalities. VISUALIZED UPPER ABDOMEN: The right hemidiaphragm is now well defined. OTHER FINDINGS: None. IMPRESSION: No interval acute cardiopulmonary disease appreciated bilaterally.
[2017-06-10 14:04] LABS: ALKALINE PHOSPHATASE 97 U/L (38-126); ALT/SGPT 40 U/L (21-72); AST/SGOT 31 U/L (17-59); BILIRUBIN,TOTAL 0.6 mg/dl (0.2-1.3); BLOOD UREA NITROGEN 20 mg/dl (9-20); CALCIUM 9.1 mg/dL (8.4-10.2); CARBON DIOXIDE 29 mmol/L (22-30); CHLORIDE 102 mmol/L (98-107); GFR AFRICAN-AMERICAN > 60; GLUCOSE,RANDOM 99 mg/dL (75-110); POTASSIUM 3.9 MMOL/L (3.6-5.0); SODIUM 146 mmol/l (132-148); TOTAL PROTEIN 8.2 G/DL (6.3-8.2)
[2017-06-10 14:09] LABS: ALB/GLOB RATIO 1.7 (1.0-2.1)
[2017-06-10 16:01] VITALS: BP 128/78; PULSE 78; RESP 18; TEMP 97.6; O2SAT 98
== END 2017-06-10 16:01 | disposition home or self-care (01) ==
LOC: H.ER 12:46
DX: J45.901 Unspecified asthma with (acute) exacerbation (principal); J44.9 Chronic obstructive pulmonary disease, unspecified
CPT/HCPCS: 71010; 80053; 85025; 94660; 96374; 99282; J2930

== ENCOUNTER 2017-06-12 12:24 | Emergency (ER) | payer MEDICAID ==
[2017-06-12 12:27] VITALS: BMI 29.9
[2017-06-12 12:28] VITALS: TEMP 100.2; O2SAT 90
[2017-06-12 13:29] LABS: BASO # 0.1 K/uL (0.0-0.2); EOS # 0.5 K/uL (0.0-0.7); EOS % 4.5 % (0.0-4.0); HEMATOCRIT 43.5 % (35.0-51.0); LYMPH # 3.5 K/uL (1.0-4.3); LYMPH % 29.7 % (20.0-40.0); MEAN CELL VOLUME 93.5 fl (80.0-94.0); MEAN CORPUSCULAR HEMOGLOBIN 30.4 pg (27.0-31.0); MEAN CORPUSCULAR HGB CONC 32.5 g/dL (33.0-37.0); MONO # 1.4 K/uL (0.0-0.8); MONO % 11.6 % (0.0-10.0); NEUT # 6.2 K/uL (1.8-7.0); NEUT % 53.2 % (50.0-75.0); RED CELL DISTRIBUTION WIDTH 12.4 % (11.5-14.5); WHITE BLOOD COUNT 11.7 K/uL (4.8-10.8)
[2017-06-12] MEDS: Midazolam 2 MG/2 ML VIAL IV ONE (13:30)
[2017-06-12] MEDS ORDERED: Midazolam 2 MG/2 ML VIAL ONE (13:30)
[2017-06-12 13:45] VITALS: BP 108/46; PULSE 98; RESP 97
[2017-06-12 13:48] LABS: ALB/GLOB RATIO 1.7 (1.0-2.1); ALCOHOL SERUM < 10 mg/dl (0-10); ALKALINE PHOSPHATASE 93 U/L (38-126); ALT/SGPT 40 U/L (21-72); AST/SGOT 44 U/L (17-59); BILIRUBIN,TOTAL 0.7 mg/dl (0.2-1.3); BLOOD UREA NITROGEN 25 mg/dl (9-20); CALCIUM 8.9 mg/dL (8.4-10.2); CARBON DIOXIDE 28 mmol/L (22-30); CHLORIDE 100 mmol/L (98-107); GFR AFRICAN-AMERICAN > 60; GLUCOSE,RANDOM 139 mg/dL (75-110); POTASSIUM 3.7 MMOL/L (3.6-5.0); SODIUM 141 mmol/l (132-148); TOTAL PROTEIN 7.6 G/DL (6.3-8.2)
--- NOTE | 2017-06-12 14:32 | ED PDOC ---
HPI: Psych/Substance Abuse Time Seen by Provider: 06/12/17 12:34 Chief Complaint (Nursing): Substance Abuse Chief Complaint (Provider): I took heroin ED Caveat: Intoxicated History Per: Patient, EMS History/Exam Limitations: clinical condition Current Symptoms Are (Timing): Still Present Modifying Factor(s): Narcotics Severity: Moderate Associated Symptoms: Anxiety, Agitation Additional Complaint(s): 41yo male arrives w EMS found on floor in building reportedly took several bags of heroin- smoked. No narcan given in field. Arrives ED somnolent but arousable , mildly agitated, required relief of agitation w versed 1mg IV (ativan not available). surveillance monitor maintained. Old charts reviewed revealing recent visits for same. Past Medical History Reviewed: Historical Data, Nursing Documentation, Vital Signs Vital Signs: Last Vital Signs Temp 100.2 F H 06/12/17 12:27 Pulse 98 H 06/12/17 13:45 Resp 97 H 06/12/17 13:45 BP 108/46 L 06/12/17 13:45 Pulse Ox 90 L 06/12/17 12:27 - Medical History PMH: Asthma, Back Problems, Migraine, Pneumonia - Family History Family History: States: Unknown Family Hx - Living Arrangements Living Arrangements: Other - Social History Drugs: Opiates - Home Medications Home Medications: Ambulatory Orders Medication Instructions Recorded oxyCODONE/Acetaminophen [Percocet 1 ea PO Q8 PRN #10 tab 07/22/16 5/325 mg Tab] Methylprednisolone [Medrol Dosepak] 4 mg PO ASDIR #1 pkg 08/02/16 Albuterol HFA [Ventolin HFA 90 2 puff IH Q4H #1 puff 08/24/16 mcg/actuation (8 g)] Albuterol HFA [Ventolin HFA 90 1 - 2 puff IH Q4H PRN #1 bottle 10/09/16 mcg/actuation (8 g)] predniSONE [Prednisone] 40 mg PO DAILY #8 tab 10/09/16 Albuterol 0.5% [Albuterol 0.5% 2.5 mg IH Q6 PRN #1 packet 10/14/16 Inhal Stephanie (2.5 mg/0.5 ml) UD] Albuterol HFA [Ventolin HFA 90 1 - 2 puff IH Q6 PRN #1 inhaler 10/14/16 mcg/actuation (8 g)] Albuterol HFA [Ventolin HFA 90 2 puff IH [id number] #1 puff 12/11/16 mcg/actuation (8 g)] predniSONE [predniSONE Tab] 60 mg PO DAILY #9 tab 12/11/16 Albuterol HFA [Ventolin HFA 90 2 puff IH Q4H PRN #1 inh 12/26/16 mcg/actuation (8 g)] Prednisone 50 mg PO DAILY #4 tablet 12/26/16 Ibuprofen [Motrin] 600 mg PO TID 7 Days tab 01/05/17 Albuterol Sulfate [Proair Hfa] 0.09 mg IH Q6H PRN #2 inh 01/17/17 predniSONE [predniSONE Tab] 20 mg PO BID 5 Days tab 01/17/17 Albuterol HFA [Ventolin HFA 90 1 - 2 puff IH Q6 PRN #1 inhaler 02/10/17 mcg/actuation (8 g)] Methylprednisolone [Medrol Dosepak] 4 mg PO ASDIR #1 pkg 02/10/17 Albuterol 0.083% [Albuterol 0.083% 3 ml IH Q4 PRN #50 neb 02/15/17 Inhal Stephanie (2.5 mg/3 ml) UD] Albuterol HFA [Ventolin HFA 90 1 - 2 puff IH Q4H PRN #1 bottle 02/25/17 mcg/actuation (8 g)] predniSONE [Prednisone] 40 mg PO DAILY #8 tab 02/25/17 Albuterol 0.083% [Albuterol 0.083% 3 ml IH Q6H PRN #30 neb 03/04/17 Inhal Stephanie (2.5 mg/3 ml) UD] Albuterol HFA [Ventolin HFA 90 2 puff IH [id number] PRN #1 bottle 03/04/17 mcg/actuation (8 g)] Azithromycin [Zithromax] 250 mg PO DAILY #4 tab 03/04/17 Prednisone 50 mg PO DAILY #4 tab 03/04/17 Albuterol 0.083% [Albuterol 3 ml IH Q8 #1 neb 06/10/17 Sulfate 3 Ml] Albuterol HFA [Ventolin HFA 90 2 puff IH Q4H #1 puff 06/10/17 mcg/actuation (8 g)] predniSONE [predniSONE Tab] 10 mg PO TID #15 tab 06/10/17 - Allergies Allergies/Adverse Reactions: Allergies Allergy/AdvReac Type Severity Reaction Status Date / Time No Known Allergies Allergy Verified 06/10/17 12:52 Review of Systems Review Of Systems: ROS cannot be obtained secondary to pt's inabilty to answer questions. Physical Exam - Reviewed Nursing Documentation Reviewed: Yes Vital Signs Reviewed: Yes - Physical Exam Appears: Positive for: Non-toxic (somnolent but arousable, no signs gross trauma ), No Acute Distress Head Exam: Positive for: ATRAUMATIC, NORMAL INSPECTION, NORMOCEPHALIC Skin: Positive for: Normal Color, Warm, DRY Eye Exam: Positive for: Normal appearance, EOMI. Negative for: PERRL (pinpoint b/l) ENT: Positive for: Normal ENT Inspection Neck: Positive for: Normal, Painless ROM Cardiovascular/Chest: Positive for: Regular Rate, Rhythm Respiratory: Positive for: Normal Breath Sounds. Negative for: Respiratory Distress Gastrointestinal/Abdominal: Positive for: Bowel Sounds, Soft. Negative for: Tenderness Back: Positive for: Normal Inspection Extremity: Positive for: Normal ROM. Negative for: Tenderness, Deformity, Swelling Neurologic/Psych: Positive for: Alert, Oriented. Negative for: Motor/Sensory Deficits - Laboratory Results Result Diagrams: 06/12/17 13:15 06/12/17 13:15 - ECG O2 Sat by Pulse Oximetry: 90 Medical Decision Making Medical Decision Making: Placed on school bus monitor. Did not require narcan. SPO2 >95% w adequate resp effort. patient monitored in ED 3+ hrs, after 2hrs remained awake and ambulatory. Left prior to discharge. Disposition - Clinical Impression Clinical Impression: Heroin abuse - Patient ED Disposition Is Patient to be Admitted: No - Disposition Disposition: Left W/O Treatment Disposition Time: 15:15 Condition: GOOD
--- NOTE | 2017-06-12 15:22 | RAD ---
HISTORY: OD COMPARISON: Chest radiographs 06/10/2017. FINDINGS: LUNGS: Patient slightly rotated toward the left asymmetry in the right hilar markings once again. No acute infiltrate or pleural effusion is appreciated bilaterally. No pneumothorax bilaterally. CARDIOVASCULAR: Normal. OSSEOUS STRUCTURES: No significant abnormalities. VISUALIZED UPPER ABDOMEN: Normal. OTHER FINDINGS: None. IMPRESSION: No definitive interval infiltrate pleural effusion or pneumothorax bilaterally.
== END 2017-06-12 15:15 | disposition left against medical advice (07) ==
LOC: H.ER 12:24
DX: F11.10 Opioid abuse, uncomplicated (principal); J45.909 Unspecified asthma, uncomplicated
CPT/HCPCS: 71010; 80053; 80320; 82948; 85025; 96374; 99283; J2250

== ENCOUNTER 2017-06-12 15:48 | Emergency (ER) | payer MEDICAID ==
[2017-06-12 15:48] VITALS: BMI 29.9
[2017-06-12 16:12] VITALS: TEMP 99
--- NOTE | 2017-06-12 16:18 | ED PDOC ---
HPI: Psych/Substance Abuse Time Seen by Provider: 06/12/17 16:06 Chief Complaint (Nursing): Substance Abuse Chief Complaint (Provider): Substance Abuse ED Caveat: Intoxicated History Per: Patient History/Exam Limitations: intoxication Onset/Duration Of Symptoms: Days (x1) Current Symptoms Are (Timing): Still Present Additional History Per: EMS Additional Complaint(s): Kalyan is a 41 y/o male who was brought to the ED by EMS for substance abuse after being found by police acting erratically in the street. Patient was here earlier today for the same and eloped, but was found again by police. Appears agitated in the ED upon arrival. Complaining of feeling restless. States he snorted 2 bags of heroin earlier today. PMD: None provided Past Medical History Reviewed: Historical Data, Nursing Documentation, Vital Signs Vital Signs: Last Vital Signs Temp 99 F 06/12/17 16:11 Pulse 105 H 06/12/17 16:11 Resp 20 06/12/17 16:11 BP 128/93 H 06/12/17 16:11 Pulse Ox 97 06/12/17 16:11 - Medical History PMH: Asthma, Back Problems, Migraine, Pneumonia - Family History Family History: States: Unknown Family Hx - Home Medications Home Medications: Ambulatory Orders Medication Instructions Recorded oxyCODONE/Acetaminophen [Percocet 1 ea PO Q8 PRN #10 tab 07/22/16 5/325 mg Tab] Methylprednisolone [Medrol Dosepak] 4 mg PO ASDIR #1 pkg 08/02/16 Albuterol HFA [Ventolin HFA 90 2 puff IH Q4H #1 puff 08/24/16 mcg/actuation (8 g)] Albuterol HFA [Ventolin HFA 90 1 - 2 puff IH Q4H PRN #1 bottle 10/09/16 mcg/actuation (8 g)] predniSONE [Prednisone] 40 mg PO DAILY #8 tab 10/09/16 Albuterol 0.5% [Albuterol 0.5% 2.5 mg IH Q6 PRN #1 packet 10/14/16 Inhal Stephanie (2.5 mg/0.5 ml) UD] Albuterol HFA [Ventolin HFA 90 1 - 2 puff IH Q6 PRN #1 inhaler 10/14/16 mcg/actuation (8 g)] Albuterol HFA [Ventolin HFA 90 2 puff IH [id number] #1 puff 12/11/16 mcg/actuation (8 g)] predniSONE [predniSONE Tab] 60 mg PO DAILY #9 tab 12/11/16 Albuterol HFA [Ventolin HFA 90 2 puff IH Q4H PRN #1 inh 12/26/16 mcg/actuation (8 g)] Prednisone 50 mg PO DAILY #4 tablet 12/26/16 Ibuprofen [Motrin] 600 mg PO TID 7 Days tab 01/05/17 Albuterol Sulfate [Proair Hfa] 0.09 mg IH Q6H PRN #2 inh 01/17/17 predniSONE [predniSONE Tab] 20 mg PO BID 5 Days tab 01/17/17 Albuterol HFA [Ventolin HFA 90 1 - 2 puff IH Q6 PRN #1 inhaler 02/10/17 mcg/actuation (8 g)] Methylprednisolone [Medrol Dosepak] 4 mg PO ASDIR #1 pkg 02/10/17 Albuterol 0.083% [Albuterol 0.083% 3 ml IH Q4 PRN #50 neb 02/15/17 Inhal Stephanie (2.5 mg/3 ml) UD] Albuterol HFA [Ventolin HFA 90 1 - 2 puff IH Q4H PRN #1 bottle 02/25/17 mcg/actuation (8 g)] predniSONE [Prednisone] 40 mg PO DAILY #8 tab 02/25/17 Albuterol 0.083% [Albuterol 0.083% 3 ml IH Q6H PRN #30 neb 03/04/17 Inhal Stephanie (2.5 mg/3 ml) UD] Albuterol HFA [Ventolin HFA 90 2 puff IH [id number] PRN #1 bottle 03/04/17 mcg/actuation (8 g)] Azithromycin [Zithromax] 250 mg PO DAILY #4 tab 03/04/17 Prednisone 50 mg PO DAILY #4 tab 03/04/17 Albuterol 0.083% [Albuterol 3 ml IH Q8 #1 neb 06/10/17 Sulfate 3 Ml] Albuterol HFA [Ventolin HFA 90 2 puff IH Q4H #1 puff 06/10/17 mcg/actuation (8 g)] predniSONE [predniSONE Tab] 10 mg PO TID #15 tab 06/10/17 - Allergies Allergies/Adverse Reactions: Allergies Allergy/AdvReac Type Severity Reaction Status Date / Time No Known Allergies Allergy Verified 06/10/17 12:52 Review of Systems ROS Statement: Except As Marked, All Systems Reviewed And Found Negative Musculoskeletal: Positive for: Other (Feels restless) Psych: Positive for: Other (Heroin use). Negative for: Suicidal ideation (or homicidal ideation) Physical Exam - Reviewed Nursing Documentation Reviewed: Yes Vital Signs Reviewed: Yes - Physical Exam Appears: Positive for: Well (appears very active in the ED), Non-toxic, No Acute Distress Head Exam: Positive for: ATRAUMATIC, NORMAL INSPECTION, NORMOCEPHALIC Skin: Positive for: Normal Color, Warm, Dry Eye Exam: Positive for: EOMI, Normal appearance, PERRL Neck: Positive for: Normal, Painless ROM Cardiovascular/Chest: Positive for: Tachycardia (with regular rhythm). Negative for: Murmur Respiratory: Positive for: Normal Breath Sounds. Negative for: Accessory Muscle Use, Respiratory Distress Gastrointestinal/Abdominal: Positive for: Normal Exam, Soft. Negative for: Tenderness Extremity: Positive for: Normal ROM. Negative for: Pedal Edema, Deformity Neurologic/Psych: Positive for: Alert, Oriented, Gait (ambulatory with steady gait), Other (Appears diaphoretic, agitated) - ECG O2 Sat by Pulse Oximetry: 97 (RA) Pulse Ox Interpretation: Normal Medical Decision Making Medical Decision Making: Records reviewed, drug screen from earlier today was only positive for opioids. Initial Impression: Substance abuse Differential includes heroin, alcohol, and other substances. Time: 16:13 Initial Plan: --Alcohol serum --Ativan 2 mg IM Patient is alert and awake. Ambulatory with steady gait. Scribe Attestation: Documented by Renae Hunter, acting as a scribe for Ghada Matos MD Provider Scribe Attestation: All medical record entries made by the Scribe were at my direction and personally dictated by me. I have reviewed the chart and agree that the record accurately reflects my personal performance of the history, physical exam, medical decision making, and the department course for this patient. I have also personally directed, reviewed, and agree with the discharge instructions and disposition. Disposition - Clinical Impression Clinical Impression: Heroin abuse - Patient ED Disposition Is Patient to be Admitted: No Doctor Will See Patient In The: Office Counseled Patient/Family Regarding: Studies Performed, Diagnosis, Need For Followup - Disposition Referrals: [facility] [Outside] Disposition: Routine/Home Disposition Time: 22:36 Condition: GOOD Instructions: Narcotic Abuse (ED)
[2017-06-12 22:42] VITALS: BP 127/88; PULSE 94; RESP 16; O2SAT 100
--- NOTE | 2017-06-13 17:44 | CARD ---
APPROVED REPORT EKG Measurement Heart [id number] <Conclusion> Normal sinus rhythm Normal ECG
== END 2017-06-12 22:47 | disposition home or self-care (01) ==
LOC: H.ER 15:48
DX: F11.10 Opioid abuse, uncomplicated (principal); J45.909 Unspecified asthma, uncomplicated
CPT/HCPCS: 80320; 93005; 96372; 99282; J2060

== ENCOUNTER 2017-07-01 12:21 | Emergency (ER) | payer MEDICAID ==
[2017-07-01 12:21] VITALS: BMI 29.9
[2017-07-01 12:52] VITALS: BP 135/87; PULSE 89; RESP 18; TEMP 98.2; O2SAT 98
[2017-07-01] MEDS ORDERED: Albuterol-Ipratrop 3 mg / 0.5 (3 ml) UD INH STA ×2 (12:57→12:58)
[2017-07-01] MEDS ORDERED: Albuterol-Ipratrop 3 mg / 0.5 (3 ml) UD ONE ×2 (12:59→13:06)
--- NOTE | 2017-07-01 13:01 | ED PDOC ---
HPI: SOB/CHF/COPD Time Seen by Provider: 07/01/17 12:53 Chief Complaint (Nursing): Shortness Of Breath Chief Complaint (Provider): SOB History Per: Patient History/Exam Limitations: no limitations Onset/Duration Of Symptoms: Hrs Current Symptoms Are (Timing): Still Present Initiating Event: Out Of Medications Exacerbating Factor(s): Exertion Current Respiratory Medications: See Home Med List Severity: Mild Recently: Seen In ED Additional Complaint(s): 41 year old male, with a past medical history of asthma, who presents to the emergency department complaining of shortness of breath associated with wheezing , and productive cough with clear sputum onset since last night. Patient states he ran out of asthma inhaler and albuterol nebs a few days ago. He denies any fever, chest or back pain. Past Medical History Reviewed: Historical Data, Nursing Documentation, Vital Signs Vital Signs: Last Vital Signs Temp 98.2 F 07/01/17 12:51 Pulse 89 07/01/17 12:51 Resp 18 07/01/17 12:52 BP 135/87 07/01/17 12:51 Pulse Ox 98 07/01/17 13:02 - Medical History PMH: Asthma, Back Problems, Migraine, Pneumonia - Family History Family History: States: Unknown Family Hx - Living Arrangements Living Arrangements: Alone - Social History Current smoker - smoking cessation education provided: Yes Alcohol: Occasional Drugs: Cannabis, Cocaine, Opiates - Immunization History Hx Tetanus Toxoid Vaccination: No - Home Medications Home Medications: Ambulatory Orders Medication Instructions Recorded oxyCODONE/Acetaminophen [Percocet 1 ea PO Q8 PRN #10 tab 07/22/16 5/325 mg Tab] Methylprednisolone [Medrol Dosepak] 4 mg PO ASDIR #1 pkg 08/02/16 Albuterol HFA [Ventolin HFA 90 2 puff IH Q4H #1 puff 08/24/16 mcg/actuation (8 g)] Albuterol HFA [Ventolin HFA 90 1 - 2 puff IH Q4H PRN #1 bottle 10/09/16 mcg/actuation (8 g)] predniSONE [Prednisone] 40 mg PO DAILY #8 tab 10/09/16 Albuterol 0.5% [Albuterol 0.5% 2.5 mg IH Q6 PRN #1 packet 10/14/16 Inhal Stephanie (2.5 mg/0.5 ml) UD] Albuterol HFA [Ventolin HFA 90 1 - 2 puff IH Q6 PRN #1 inhaler 10/14/16 mcg/actuation (8 g)] Albuterol HFA [Ventolin HFA 90 2 puff IH [id number] #1 puff 12/11/16 mcg/actuation (8 g)] predniSONE [predniSONE Tab] 60 mg PO DAILY #9 tab 12/11/16 Albuterol HFA [Ventolin HFA 90 2 puff IH Q4H PRN #1 inh 12/26/16 mcg/actuation (8 g)] Prednisone 50 mg PO DAILY #4 tablet 12/26/16 Ibuprofen [Motrin] 600 mg PO TID 7 Days tab 01/05/17 Albuterol Sulfate [Proair Hfa] 0.09 mg IH Q6H PRN #2 inh 01/17/17 predniSONE [predniSONE Tab] 20 mg PO BID 5 Days tab 01/17/17 Albuterol HFA [Ventolin HFA 90 1 - 2 puff IH Q6 PRN #1 inhaler 02/10/17 mcg/actuation (8 g)] Methylprednisolone [Medrol Dosepak] 4 mg PO ASDIR #1 pkg 02/10/17 Albuterol 0.083% [Albuterol 0.083% 3 ml IH Q4 PRN #50 neb 02/15/17 Inhal Stephanie (2.5 mg/3 ml) UD] Albuterol HFA [Ventolin HFA 90 1 - 2 puff IH Q4H PRN #1 bottle 02/25/17 mcg/actuation (8 g)] predniSONE [Prednisone] 40 mg PO DAILY #8 tab 02/25/17 Albuterol 0.083% [Albuterol 0.083% 3 ml IH Q6H PRN #30 neb 03/04/17 Inhal Stephanie (2.5 mg/3 ml) UD] Albuterol HFA [Ventolin HFA 90 2 puff IH [id number] PRN #1 bottle 03/04/17 mcg/actuation (8 g)] Azithromycin [Zithromax] 250 mg PO DAILY #4 tab 03/04/17 Prednisone 50 mg PO DAILY #4 tab 03/04/17 Albuterol 0.083% [Albuterol 3 ml IH Q8 #1 neb 06/10/17 Sulfate 3 Ml] Albuterol HFA [Ventolin HFA 90 2 puff IH Q4H #1 puff 06/10/17 mcg/actuation (8 g)] predniSONE [predniSONE Tab] 10 mg PO TID #15 tab 06/10/17 Albuterol HFA [Ventolin HFA 90 1 puff IH Q4 #1 puff 07/01/17 mcg/actuation (8 g)] Prednisone 50 mg PO DAILY #5 tablet 07/01/17 - Allergies Allergies/Adverse Reactions: Allergies Allergy/AdvReac Type Severity Reaction Status Date / Time No Known Allergies Allergy Verified 06/10/17 12:52 Wells Criteria for PE - Wells Criteria for Pulmonary Embolism Clinical Signs and Symptoms of DVT: No P.E is #1 Diagnosis, or Equally Likely: No Heart Rate >100: No Immobilization at least 3 days;Surgery previous 4 weeks: No Previous, objectively diagnosed PE or DVT: No Hemoptysis: No Malignancy w/treatment within 6 months, or palliative: No Total Score: 0 Review of Systems ROS Statement: Except As Marked, All Systems Reviewed And Found Negative Respiratory: Positive for: Cough, Shortness of Breath, Wheezing Physical Exam - Reviewed Nursing Documentation Reviewed: Yes Vital Signs Reviewed: Yes - Physical Exam Appears: Positive for: Non-toxic, In Acute Distress (wheezing) Head Exam: Positive for: ATRAUMATIC, NORMAL INSPECTION, NORMOCEPHALIC Skin: Positive for: Warm, Dry. Negative for: Rash Eye Exam: Positive for: Normal appearance, EOMI, PERRL ENT: Positive for: Normal ENT Inspection Neck: Positive for: Painless ROM Cardiovascular/Chest: Positive for: Regular Rate, Rhythm. Negative for: Murmur Respiratory: Positive for: Wheezing (diffuse bilaterally). Negative for: Rales , Rhonchi Extremity: Positive for: Normal ROM. Negative for: Tenderness, Pedal Edema, Deformity, Swelling Neurologic/Psych: Positive for: Alert, Oriented - ECG O2 Sat by Pulse Oximetry: 98 Nebulizer Treatments/Peak Flow - Duonebs Number of Bronchodilator Doses given?: 2 - Steroid Treatment Steroid: IV - Clinical Response Clinical Response: Improved Medical Decision Making Medical Decision Making: Impression: asthma exacerbation Plan: * Solu-medrol * Duonebs x2 Re-Eval: Patient reports feeling better and asking for discharge. Lung sounds are now clear. Patient stable for discharge and Rx given. Disposition - Clinical Impression Clinical Impression: Asthma exacerbation - Patient ED Disposition Is Patient to be Admitted: No Counseled Patient/Family Regarding: Diagnosis, Need For Followup, Rx Given - Disposition Disposition: Routine/Home Disposition Time: 14:35 Condition: IMPROVED Additional Instructions: Follow up with your primary medical doctor or clinic in 2-5 days for further evaluation. Take medications as prescribed. Return to the emergency department at any time if symptoms persist or worsen. Prescriptions: Albuterol HFA [Ventolin HFA 90 mcg/actuation (8 g)] 1 puff IH Q4 #1 puff Prednisone 50 mg PO DAILY #5 tablet Instructions: Asthma (DC) Forms: [employer] (Swiss)
--- NOTE | 2017-07-02 12:25 | CARD ---
APPROVED REPORT EKG Measurement Heart [id number] 170P83 [id number] <Conclusion> Normal sinus rhythm Possible Left atrial enlargement Borderline ECG
== END 2017-07-01 14:42 | disposition home or self-care (01) ==
LOC: H.ER 12:21
DX: J45.901 Unspecified asthma with (acute) exacerbation (principal); F17.200 Nicotine dependence, unspecified, uncomplicated
CPT/HCPCS: 93005; 94640; 96374; 99284; J2930

== ENCOUNTER 2017-07-07 19:13 | Emergency (ER) | payer MEDICAID ==
[2017-07-07 19:13] VITALS: BMI 29.9
[2017-07-07 19:22] VITALS: BP 144/89; PULSE 98; TEMP 97.6; O2SAT 97
[2017-07-07] MEDS ORDERED: Albuterol-Ipratrop 3 mg / 0.5 (3 ml) UD ONE ×2 (19:29→20:31)
[2017-07-07] MEDS ORDERED: Albuterol-Ipratrop 3 mg / 0.5 (3 ml) UD IH STA ×3 (19:33→20:34)
--- NOTE | 2017-07-07 19:36 | ED PDOC ---
HPI: SOB/CHF/COPD Time Seen by Provider: 07/07/17 19:25 Chief Complaint (Nursing): Shortness Of Breath History Per: Patient Onset/Duration Of Symptoms: Days (2) Current Symptoms Are (Timing): Still Present Current Respiratory Medications: See Home Med List Severity: Moderate Associated Symptoms: denies: Fever Additional Complaint(s): SOB wheezing and nonproductive cough x 2 days. No improvement with albuterol inhaler. Past Medical History Vital Signs: Last Vital Signs Temp 97.6 F 07/07/17 19:19 Pulse 98 H 07/07/17 19:19 Resp 19 07/07/17 19:19 BP 144/89 07/07/17 19:19 Pulse Ox 97 07/07/17 19:36 - Medical History PMH: Asthma, Back Problems, Migraine, Pneumonia - Family History Family History: States: Unknown Family Hx - Immunization History Hx Tetanus Toxoid Vaccination: No - Home Medications Home Medications: Ambulatory Orders Medication Instructions Recorded oxyCODONE/Acetaminophen [Percocet 1 ea PO Q8 PRN #10 tab 07/22/16 5/325 mg Tab] Methylprednisolone [Medrol Dosepak] 4 mg PO ASDIR #1 pkg 08/02/16 Albuterol HFA [Ventolin HFA 90 2 puff IH Q4H #1 puff 08/24/16 mcg/actuation (8 g)] Albuterol HFA [Ventolin HFA 90 1 - 2 puff IH Q4H PRN #1 bottle 10/09/16 mcg/actuation (8 g)] predniSONE [Prednisone] 40 mg PO DAILY #8 tab 10/09/16 Albuterol 0.5% [Albuterol 0.5% 2.5 mg IH Q6 PRN #1 packet 10/14/16 Inhal Stephanie (2.5 mg/0.5 ml) UD] Albuterol HFA [Ventolin HFA 90 1 - 2 puff IH Q6 PRN #1 inhaler 10/14/16 mcg/actuation (8 g)] Albuterol HFA [Ventolin HFA 90 2 puff IH [id number] #1 puff 12/11/16 mcg/actuation (8 g)] predniSONE [predniSONE Tab] 60 mg PO DAILY #9 tab 12/11/16 Albuterol HFA [Ventolin HFA 90 2 puff IH Q4H PRN #1 inh 12/26/16 mcg/actuation (8 g)] Prednisone 50 mg PO DAILY #4 tablet 12/26/16 Ibuprofen [Motrin] 600 mg PO TID 7 Days tab 01/05/17 Albuterol Sulfate [Proair Hfa] 0.09 mg IH Q6H PRN #2 inh 01/17/17 predniSONE [predniSONE Tab] 20 mg PO BID 5 Days tab 01/17/17 Albuterol HFA [Ventolin HFA 90 1 - 2 puff IH Q6 PRN #1 inhaler 02/10/17 mcg/actuation (8 g)] Methylprednisolone [Medrol Dosepak] 4 mg PO ASDIR #1 pkg 02/10/17 Albuterol 0.083% [Albuterol 0.083% 3 ml IH Q4 PRN #50 neb 02/15/17 Inhal Stephanie (2.5 mg/3 ml) UD] Albuterol HFA [Ventolin HFA 90 1 - 2 puff IH Q4H PRN #1 bottle 02/25/17 mcg/actuation (8 g)] predniSONE [Prednisone] 40 mg PO DAILY #8 tab 02/25/17 Albuterol 0.083% [Albuterol 0.083% 3 ml IH Q6H PRN #30 neb 03/04/17 Inhal Stephanie (2.5 mg/3 ml) UD] Albuterol HFA [Ventolin HFA 90 2 puff IH [id number] PRN #1 bottle 03/04/17 mcg/actuation (8 g)] Azithromycin [Zithromax] 250 mg PO DAILY #4 tab 03/04/17 Prednisone 50 mg PO DAILY #4 tab 03/04/17 Albuterol 0.083% [Albuterol 3 ml IH Q8 #1 neb 06/10/17 Sulfate 3 Ml] Albuterol HFA [Ventolin HFA 90 2 puff IH Q4H #1 puff 06/10/17 mcg/actuation (8 g)] predniSONE [predniSONE Tab] 10 mg PO TID #15 tab 06/10/17 Albuterol HFA [Ventolin HFA 90 1 puff IH Q4 #1 puff 07/01/17 mcg/actuation (8 g)] Prednisone 50 mg PO DAILY #5 tablet 07/01/17 Albuterol HFA [Ventolin HFA 90 2 puff IH Q4H #1 puff 07/07/17 mcg/actuation (8 g)] Amoxicillin/Potassium Clav 1 tab PO TID #30 tab 07/07/17 [Augmentin 500 mg-125 mg] Prednisone 50 mg PO DAILY #5 tab 07/07/17 - Allergies Allergies/Adverse Reactions: Allergies Allergy/AdvReac Type Severity Reaction Status Date / Time No Known Allergies Allergy Verified 06/10/17 12:52 Review of Systems ROS Statement: Except As Marked, All Systems Reviewed And Found Negative Constitutional: Negative for: Fever Respiratory: Positive for: Cough, Wheezing Physical Exam - Physical Exam Appears: Positive for: Non-toxic, No Acute Distress Skin: Positive for: Normal Color, Warm, DRY Cardiovascular/Chest: Positive for: Regular Rate, Rhythm Respiratory: Positive for: Wheezing. Negative for: Respiratory Distress Extremity: Positive for: Normal ROM Neurologic/Psych: Positive for: Alert, Oriented - ECG O2 Sat by Pulse Oximetry: 97 - Progress Re-evaluation Time: 21:22 Condition: Improved Disposition - Clinical Impression Clinical Impression: Bronchitis, Asthma exacerbation - Patient ED Disposition Is Patient to be Admitted: No Counseled Patient/Family Regarding: Studies Performed, Diagnosis, Need For Followup, Rx Given - Disposition Referrals: [facility] [Outside] Disposition: Routine/Home Disposition Time: 21:22 Condition: FAIR Prescriptions: Albuterol HFA [Ventolin HFA 90 mcg/actuation (8 g)] 2 puff IH Q4H #1 puff Amoxicillin/Potassium Clav [Augmentin 500 mg-125 mg] 1 tab PO TID #30 tab Prednisone 50 mg PO DAILY #5 tab Instructions: Acute Bronchitis (ED), Bronchospasm (ED) Forms: [employer] (Kazakh)
[2017-07-07 21:29] VITALS: RESP 25
--- NOTE | 2017-07-08 08:47 | RAD ---
HISTORY: cough COMPARISON: Portable chest 06/12/2017. TECHNIQUE: Chest PA and lateral FINDINGS: LUNGS: No active pulmonary disease. Hyperexpansion of lung gifford is appreciated bilaterally. Clinically correlate. PLEURA: No significant pleural effusion identified. No pneumothorax apparent. CARDIOVASCULAR: Normal. OSSEOUS STRUCTURES: No significant abnormalities. VISUALIZED UPPER ABDOMEN: Normal. OTHER FINDINGS: None. IMPRESSION: Exuberant inspiratory volume is suggested. Clinically correlate as whether this is a possible function of air trapping. No infiltrate bilaterally or definite pleural effusion.
--- NOTE | 2017-07-08 17:48 | CARD ---
APPROVED REPORT EKG Measurement Heart [id number] CO 158P85 [id number] <Conclusion> Normal sinus rhythm Possible Left atrial enlargement Borderline ECG
== END 2017-07-07 21:30 | disposition home or self-care (01) ==
LOC: H.ER 19:13
DX: J45.901 Unspecified asthma with (acute) exacerbation (principal); J44.9 Chronic obstructive pulmonary disease, unspecified

== ENCOUNTER 2017-07-09 18:28 | Emergency (ER) | payer MEDICAID ==
[2017-07-09 18:28] VITALS: BMI 29.9
[2017-07-09 18:41] VITALS: TEMP 98
[2017-07-09] MEDS ORDERED: Albuterol-Ipratrop 3 mg / 0.5 (3 ml) UD INH STA ×2 (18:57→18:58)
[2017-07-09] MEDS: Albuterol-Ipratrop 3 mg / 0.5 (3 ml) UD INH STA (19:02)
--- NOTE | 2017-07-09 19:04 | ED PDOC ---
HPI: SOB/CHF/COPD Time Seen by Provider: 07/09/17 19:03 Chief Complaint (Nursing): Shortness Of Breath Chief Complaint (Provider): SHORTNESS OF BREATH History Per: Patient (42 Y/O MALE H/O ASTHMA RECENTLY SEEN IN ED 07/07/2017 AND STARTED ON PREDNISONE HERE WITH SOB/EXACERBATION. STATES HE NOTED WORSENING OF SYMPTOMS WHEN HE CAME OUT INTO COLD AIR. NO FEVERS/CHILLS.) Past Medical History Reviewed: Historical Data, Nursing Documentation, Vital Signs Vital Signs: Last Vital Signs Temp 98.0 F 07/09/17 18:40 Pulse 94 H 07/09/17 19:12 Resp 19 07/09/17 19:12 BP 127/84 07/09/17 19:12 Pulse Ox 99 07/09/17 19:12 - Medical History PMH: Asthma, Back Problems, Migraine, Pneumonia - Family History Family History: States: Unknown Family Hx - Immunization History Hx Tetanus Toxoid Vaccination: No - Home Medications Home Medications: Ambulatory Orders Medication Instructions Recorded oxyCODONE/Acetaminophen [Percocet 1 ea PO Q8 PRN #10 tab 07/22/16 5/325 mg Tab] Methylprednisolone [Medrol Dosepak] 4 mg PO ASDIR #1 pkg 08/02/16 Albuterol HFA [Ventolin HFA 90 2 puff IH Q4H #1 puff 08/24/16 mcg/actuation (8 g)] Albuterol HFA [Ventolin HFA 90 1 - 2 puff IH Q4H PRN #1 bottle 10/09/16 mcg/actuation (8 g)] predniSONE [Prednisone] 40 mg PO DAILY #8 tab 10/09/16 Albuterol 0.5% [Albuterol 0.5% 2.5 mg IH Q6 PRN #1 packet 10/14/16 Inhal Stephanie (2.5 mg/0.5 ml) UD] Albuterol HFA [Ventolin HFA 90 1 - 2 puff IH Q6 PRN #1 inhaler 10/14/16 mcg/actuation (8 g)] Albuterol HFA [Ventolin HFA 90 2 puff IH [id number] #1 puff 12/11/16 mcg/actuation (8 g)] predniSONE [predniSONE Tab] 60 mg PO DAILY #9 tab 12/11/16 Albuterol HFA [Ventolin HFA 90 2 puff IH Q4H PRN #1 inh 12/26/16 mcg/actuation (8 g)] Prednisone 50 mg PO DAILY #4 tablet 12/26/16 Ibuprofen [Motrin] 600 mg PO TID 7 Days tab 01/05/17 Albuterol Sulfate [Proair Hfa] 0.09 mg IH Q6H PRN #2 inh 01/17/17 predniSONE [predniSONE Tab] 20 mg PO BID 5 Days tab 01/17/17 Albuterol HFA [Ventolin HFA 90 1 - 2 puff IH Q6 PRN #1 inhaler 02/10/17 mcg/actuation (8 g)] Methylprednisolone [Medrol Dosepak] 4 mg PO ASDIR #1 pkg 02/10/17 Albuterol 0.083% [Albuterol 0.083% 3 ml IH Q4 PRN #50 neb 02/15/17 Inhal Stephanie (2.5 mg/3 ml) UD] Albuterol HFA [Ventolin HFA 90 1 - 2 puff IH Q4H PRN #1 bottle 02/25/17 mcg/actuation (8 g)] predniSONE [Prednisone] 40 mg PO DAILY #8 tab 02/25/17 Albuterol 0.083% [Albuterol 0.083% 3 ml IH Q6H PRN #30 neb 03/04/17 Inhal Stephanie (2.5 mg/3 ml) UD] Albuterol HFA [Ventolin HFA 90 2 puff IH [id number] PRN #1 bottle 03/04/17 mcg/actuation (8 g)] Azithromycin [Zithromax] 250 mg PO DAILY #4 tab 03/04/17 Prednisone 50 mg PO DAILY #4 tab 03/04/17 Albuterol 0.083% [Albuterol 3 ml IH Q8 #1 neb 06/10/17 Sulfate 3 Ml] Albuterol HFA [Ventolin HFA 90 2 puff IH Q4H #1 puff 06/10/17 mcg/actuation (8 g)] predniSONE [predniSONE Tab] 10 mg PO TID #15 tab 06/10/17 Albuterol HFA [Ventolin HFA 90 1 puff IH Q4 #1 puff 07/01/17 mcg/actuation (8 g)] Prednisone 50 mg PO DAILY #5 tablet 07/01/17 Albuterol HFA [Ventolin HFA 90 2 puff IH Q4H #1 puff 07/07/17 mcg/actuation (8 g)] Amoxicillin/Potassium Clav 1 tab PO TID #30 tab 07/07/17 [Augmentin 500 mg-125 mg] Prednisone 50 mg PO DAILY #5 tab 07/07/17 - Allergies Allergies/Adverse Reactions: Allergies Allergy/AdvReac Type Severity Reaction Status Date / Time No Known Allergies Allergy Verified 07/09/17 18:40 Review of Systems ROS Statement: Except As Marked, All Systems Reviewed And Found Negative Respiratory: Positive for: Shortness of Breath Physical Exam - Reviewed Nursing Documentation Reviewed: Yes Vital Signs Reviewed: Yes - Physical Exam Appears: Positive for: Well, Non-toxic, No Acute Distress Head Exam: Positive for: ATRAUMATIC, NORMAL INSPECTION, NORMOCEPHALIC Skin: Positive for: Normal Color, Warm, DRY Eye Exam: Positive for: EOMI, Normal appearance, PERRL ENT: Positive for: Normal ENT Inspection Neck: Positive for: Normal, Painless ROM Cardiovascular/Chest: Positive for: Regular Rate, Rhythm Respiratory: Positive for: Normal Breath Sounds, Wheezing Gastrointestinal/Abdominal: Positive for: Normal Exam, Bowel Sounds, Soft Back: Positive for: Normal Inspection Extremity: Positive for: Normal ROM Neurologic/Psych: Positive for: Alert, Oriented - ECG O2 Sat by Pulse Oximetry: 94 - Progress ED Course And Treament: DUONEB X 3 DOSES PATIENT LEFT PRIOR TO RE-EVALUATION IN ED. Disposition - Clinical Impression Clinical Impression: Asthma - Patient ED Disposition Is Patient to be Admitted: No - Disposition Disposition: Left W/O Treatment Disposition Time: 19:25 Condition: FAIR Forms: [employer] (Japanese)
[2017-07-09 19:13] VITALS: BP 127/84; PULSE 94; RESP 19
[2017-07-09 19:25] VITALS: O2SAT 94
== END 2017-07-09 19:20 | disposition left against medical advice (07) ==
LOC: H.ER 18:28
DX: J45.909 Unspecified asthma, uncomplicated (principal)

== ENCOUNTER 2017-07-17 19:59 | Emergency (ER) | payer MEDICAID ==
[2017-07-17 19:59] VITALS: BMI 29.9
[2017-07-17] MEDS ORDERED: DiphenhydrAMINE 50 mg/ml Inj ONE (20:02)
[2017-07-17] MEDS ORDERED: DiphenhydrAMINE 50 mg/ml Inj IM STA (20:05)
[2017-07-17 20:25] VITALS: BP 100/60; RESP 17; O2SAT 93
[2017-07-17 21:02] LABS: BASO # 0.1 K/uL (0.0-0.2); BASO % 0.9 % (0.0-2.0); EOS # 0.4 K/uL (0.0-0.7); EOS % 3.1 % (0.0-4.0); HEMATOCRIT 44.3 % (35.0-51.0); LYMPH # 1.9 K/uL (1.0-4.3); MEAN CELL VOLUME 94.7 fl (80.0-94.0); MEAN CORPUSCULAR HEMOGLOBIN 30.9 pg (27.0-31.0); MEAN CORPUSCULAR HGB CONC 32.6 g/dL (33.0-37.0); MEAN PLATELET VOLUME 8.2 fl (7.2-11.7); MONO # 1.1 K/uL (0.0-0.8); MONO % 8.7 % (0.0-10.0); NEUT # 9.1 K/uL (1.8-7.0); NEUT % 72.3 % (50.0-75.0); RED CELL DISTRIBUTION WIDTH 12.1 % (11.5-14.5); WHITE BLOOD COUNT 12.6 K/uL (4.8-10.8)
[2017-07-17] MEDS ORDERED: Sodium Chloride 0.9% 1,000 ML IV STA (21:03)
[2017-07-17 21:14] LABS: ALB/GLOB RATIO 1.8 (1.0-2.1); BILIRUBIN,TOTAL 0.8 mg/dl (0.2-1.3); CALCIUM 9.3 mg/dL (8.4-10.2); POTASSIUM 4.2 MMOL/L (3.6-5.0); TOTAL PROTEIN 7.4 G/DL (6.3-8.2)
--- NOTE | 2017-07-17 22:51 | ED PDOC ---
HPI: Psych/Substance Abuse Time Seen by Provider: 07/17/17 20:03 Chief Complaint (Nursing): Substance Abuse Chief Complaint (Provider): agitation ED Caveat: Psychotic Additional Complaint(s): BIBEMS and [place] PD for acute agitation. Pt was in [id number]'s home and started to act out. Reports of heroin use. No history obtainable from patient. Past Medical History Reviewed: Historical Data, Nursing Documentation, Vital Signs, Unable To Obtain Vital Signs: Last Vital Signs Temp Pulse 129 H 07/17/17 20:24 Resp 17 07/17/17 20:24 BP 100/60 07/17/17 20:24 Pulse Ox 93 L 07/17/17 20:24 - Medical History PMH: Asthma, Back Problems, Migraine, Pneumonia - Family History Family History: States: Unknown Family Hx - Immunization History Hx Tetanus Toxoid Vaccination: No - Home Medications Home Medications: Ambulatory Orders Medication Instructions Recorded oxyCODONE/Acetaminophen [Percocet 1 ea PO Q8 PRN #10 tab 07/22/16 5/325 mg Tab] Methylprednisolone [Medrol Dosepak] 4 mg PO ASDIR #1 pkg 08/02/16 Albuterol HFA [Ventolin HFA 90 2 puff IH Q4H #1 puff 08/24/16 mcg/actuation (8 g)] Albuterol HFA [Ventolin HFA 90 1 - 2 puff IH Q4H PRN #1 bottle 10/09/16 mcg/actuation (8 g)] predniSONE [Prednisone] 40 mg PO DAILY #8 tab 10/09/16 Albuterol 0.5% [Albuterol 0.5% 2.5 mg IH Q6 PRN #1 packet 10/14/16 Inhal Stephanie (2.5 mg/0.5 ml) UD] Albuterol HFA [Ventolin HFA 90 1 - 2 puff IH Q6 PRN #1 inhaler 10/14/16 mcg/actuation (8 g)] Albuterol HFA [Ventolin HFA 90 2 puff IH [id number] #1 puff 12/11/16 mcg/actuation (8 g)] predniSONE [predniSONE Tab] 60 mg PO DAILY #9 tab 12/11/16 Albuterol HFA [Ventolin HFA 90 2 puff IH Q4H PRN #1 inh 12/26/16 mcg/actuation (8 g)] Prednisone 50 mg PO DAILY #4 tablet 12/26/16 Ibuprofen [Motrin] 600 mg PO TID 7 Days tab 01/05/17 Albuterol Sulfate [Proair Hfa] 0.09 mg IH Q6H PRN #2 inh 01/17/17 predniSONE [predniSONE Tab] 20 mg PO BID 5 Days tab 01/17/17 Albuterol HFA [Ventolin HFA 90 1 - 2 puff IH Q6 PRN #1 inhaler 02/10/17 mcg/actuation (8 g)] Methylprednisolone [Medrol Dosepak] 4 mg PO ASDIR #1 pkg 02/10/17 Albuterol 0.083% [Albuterol 0.083% 3 ml IH Q4 PRN #50 neb 02/15/17 Inhal Stephanie (2.5 mg/3 ml) UD] Albuterol HFA [Ventolin HFA 90 1 - 2 puff IH Q4H PRN #1 bottle 02/25/17 mcg/actuation (8 g)] predniSONE [Prednisone] 40 mg PO DAILY #8 tab 02/25/17 Albuterol 0.083% [Albuterol 0.083% 3 ml IH Q6H PRN #30 neb 03/04/17 Inhal Stephanie (2.5 mg/3 ml) UD] Albuterol HFA [Ventolin HFA 90 2 puff IH [id number] PRN #1 bottle 03/04/17 mcg/actuation (8 g)] Azithromycin [Zithromax] 250 mg PO DAILY #4 tab 03/04/17 Prednisone 50 mg PO DAILY #4 tab 03/04/17 Albuterol 0.083% [Albuterol 3 ml IH Q8 #1 neb 06/10/17 Sulfate 3 Ml] Albuterol HFA [Ventolin HFA 90 2 puff IH Q4H #1 puff 06/10/17 mcg/actuation (8 g)] predniSONE [predniSONE Tab] 10 mg PO TID #15 tab 06/10/17 Albuterol HFA [Ventolin HFA 90 1 puff IH Q4 #1 puff 07/01/17 mcg/actuation (8 g)] Prednisone 50 mg PO DAILY #5 tablet 07/01/17 Albuterol HFA [Ventolin HFA 90 2 puff IH Q4H #1 puff 07/07/17 mcg/actuation (8 g)] Amoxicillin/Potassium Clav 1 tab PO TID #30 tab 07/07/17 [Augmentin 500 mg-125 mg] Prednisone 50 mg PO DAILY #5 tab 07/07/17 - Allergies Allergies/Adverse Reactions: Allergies Allergy/AdvReac Type Severity Reaction Status Date / Time No Known Allergies Allergy Verified 07/09/17 18:40 Review of Systems Review Of Systems: ROS cannot be obtained secondary to pt's inabilty to answer questions. Physical Exam - Reviewed Nursing Documentation Reviewed: Yes Vital Signs Reviewed: Yes - Physical Exam Appears: Positive for: In Acute Distress (psychotic and agitated) Skin: Positive for: Warm, Dry Eye Exam: Positive for: EOMI (small bilateral pupils) ENT: Positive for: Pharynx Is (tacky) Neck: Positive for: Painless ROM, Trachea Midline Cardiovascular/Chest: Positive for: Tachycardia. Negative for: Murmur Respiratory: Positive for: Rhonchi. Negative for: Respiratory Distress Gastrointestinal/Abdominal: Positive for: Soft. Negative for: Tenderness, Mass , Distended Back: Negative for: Decreased ROM Extremity: Positive for: Normal ROM. Negative for: Deformity Lymphatic: Negative for: Adenopathy Neurologic/Psych: Positive for: Mood/Affect (violently agitated and yelling nonsensically in bed). Negative for: Oriented, Motor/Sensory Deficits, Facial Droop - Laboratory Results Result Diagrams: 07/17/17 20:45 07/17/17 20:45 - ECG ECG Rhythm: Positive for: Normal ST Segment, Sinus Tachycardia O2 Sat by Pulse Oximetry: 93 - Progress ED Course And Treament: On arrival pt acutely psychotic and danger to self and others. Medicated for psychosis and restrained for safety. 1:1 observation 2130 Pt sleeping, but when aroused has agitation. BP borderline low. Aggressive IVF hydration. 2300 Pt sleeping but when aroused seem more lucid and redirectable. HR improving with fluids. Labs demonstrate opiates and alcohol. 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 [address] Castaneda pending sobriety and final ER disposition Condition: Improving,but remains with symptoms - Critical Care Total Time (In Min): 30 Documented Critical Care: Time excludes all time spent performint seperately billable procedures Disposition - Clinical Impression Clinical Impression: Alcohol abuse, Opiate use - Disposition Disposition: Transfer of Care Disposition Time: 00:00 Condition: STABLE
[2017-07-17 22:55] VITALS: TEMP 98.6
[2017-07-17] MEDS ORDERED: Dextrose 5%/Lactated Ringer's 1,000 ML IV SCH (23:45)
[2017-07-18 02:06] VITALS: PULSE 99
--- NOTE | 2017-07-18 02:08 | ED PDOC ---
- Laboratory Results Result Diagrams: 07/17/17 20:45 07/17/17 20:45 - ECG O2 Sat by Pulse Oximetry: 93 (RA) Pulse Ox Interpretation: Normal Medical Decision Making Medical Decision Making: Time: 00:00 --Patient was endorsed to provider by Dr. Casandra Chaparro. Pending clinical sobriety. Time: 0200 --Upon provider reevaluation, patient is awake, medically stable and requires no further treatment in the ED at this time. Patient admitted to drinking alcohol tonight but denied drug use and will be discharged home. Counseling was provided and all questions were answered regarding diagnosis. There is agreement to discharge plan. Return if symptoms persist or worsen. Clinical Impression: Alcohol abuse Scribe Attestation: Documented by Keisha Torres, acting as a scribe for Orlando Castaneda MD. Provider Scribe Attestation: All medical record entries made by the Scribe were at my direction and personally dictated by me. I have reviewed the chart and agree that the record accurately reflects my personal performance of the history, physical exam, medical decision making, and the department course for this patient. I have also personally directed, reviewed, and agree with the discharge instructions and disposition. Disposition Counseled Patient/Family Regarding: Diagnosis - Clinical Impression Clinical Impression: Alcohol abuse - POA Present On Arrival: None - Disposition Referrals: Alcoholics Anonymous [Outside] Disposition: Routine/Home Disposition Time: 02:00 Condition: STABLE Instructions: Alcohol Intoxication (ED) Forms: [employer] ([place] Leone[place])
--- NOTE | 2017-07-18 15:52 | CARD ---
APPROVED REPORT EKG Measurement Heart [id number] [place] 140P68 [id number] <Conclusion> Sinus tachycardia Possible Left atrial enlargement Borderline ECG
== END 2017-07-18 02:13 | disposition home or self-care (01) ==
LOC: H.ER 19:59
DX: F10.10 Alcohol abuse, uncomplicated (principal); F11.20 Opioid dependence, uncomplicated; J45.909 Unspecified asthma, uncomplicated; R00.0 Tachycardia, unspecified
CPT/HCPCS: 80053; 80320; 80324; 80345; 80346; 80349; 80353; 80358; 80361; 82948; 83992; 85025; 93005; 96372; 99284; J1200; J1630; J2060; J7040; J7120

== ENCOUNTER 2017-09-13 22:25 | Emergency (ER) | payer MEDICAID ==
[2017-09-13 22:26] VITALS: BMI 29.9
[2017-09-13 22:46] VITALS: RESP 18; TEMP 98
[2017-09-13] MEDS ORDERED: Albuterol-Ipratrop 3 mg / 0.5 (3 ml) UD INH STA (22:54)
[2017-09-13] MEDS ORDERED: Albuterol-Ipratrop 3 mg / 0.5 (3 ml) UD ONE ×2 (23:16→23:32)
--- NOTE | 2017-09-13 23:25 | ED PDOC ---
HPI: SOB/CHF/COPD Time Seen by Provider: 09/13/17 22:45 Chief Complaint (Nursing): Cough, Cold, Congestion Chief Complaint (Provider): Shortness of breath History Per: Patient History/Exam Limitations: no limitations Onset/Duration Of Symptoms: Days (4) Current Symptoms Are (Timing): Still Present Current Respiratory Medications: None Severity: Moderate Associated Symptoms: Fever, Productive Cough. denies: Chest Pain Additional History Per: Patient Additional Complaint(s): 42 y/o male with PMHx Asthma. He complains of worsening shortness of breath and wheezing for the last four days, associated with productive cough, chest tightness, and subjective fever. He denies access to an inhaler at home. Patient denies any nausea and vomiting. He did not receive a flu vaccination this year. Past Medical History Vital Signs: Last Vital Signs Temp 98.0 F 09/13/17 22:39 Pulse 109 H 09/13/17 23:45 Resp 18 09/13/17 23:45 BP 133/65 09/13/17 23:45 Pulse Ox 97 09/14/17 00:36 - Medical History PMH: Asthma, Back Problems, Migraine, Pneumonia - Surgical History Surgical History: No Surg Hx - Family History Family History: States: Unknown Family Hx - Social History Alcohol: Other (admits) Drugs: Opiates - Immunization History Hx Tetanus Toxoid Vaccination: No - Home Medications Home Medications: Ambulatory Orders Medication Instructions Recorded oxyCODONE/Acetaminophen [Percocet 1 ea PO Q8 PRN #10 tab 07/22/16 5/325 mg Tab] Methylprednisolone [Medrol Dosepak] 4 mg PO ASDIR #1 pkg 08/02/16 Albuterol HFA [Ventolin HFA 90 2 puff IH Q4H #1 puff 08/24/16 mcg/actuation (8 g)] Albuterol HFA [Ventolin HFA 90 1 - 2 puff IH Q4H PRN #1 bottle 10/09/16 mcg/actuation (8 g)] predniSONE [Prednisone] 40 mg PO DAILY #8 tab 10/09/16 Albuterol 0.5% [Albuterol 0.5% 2.5 mg IH Q6 PRN #1 packet 10/14/16 Inhal Stephanie (2.5 mg/0.5 ml) UD] Albuterol HFA [Ventolin HFA 90 1 - 2 puff IH Q6 PRN #1 inhaler 10/14/16 mcg/actuation (8 g)] Albuterol HFA [Ventolin HFA 90 2 puff IH [id number] #1 puff 12/11/16 mcg/actuation (8 g)] predniSONE [predniSONE Tab] 60 mg PO DAILY #9 tab 12/11/16 Albuterol HFA [Ventolin HFA 90 2 puff IH Q4H PRN #1 inh 12/26/16 mcg/actuation (8 g)] Prednisone 50 mg PO DAILY #4 tablet 12/26/16 Ibuprofen [Motrin] 600 mg PO TID 7 Days tab 01/05/17 Albuterol Sulfate [Proair Hfa] 0.09 mg IH Q6H PRN #2 inh 01/17/17 predniSONE [predniSONE Tab] 20 mg PO BID 5 Days tab 01/17/17 Albuterol HFA [Ventolin HFA 90 1 - 2 puff IH Q6 PRN #1 inhaler 02/10/17 mcg/actuation (8 g)] Methylprednisolone [Medrol Dosepak] 4 mg PO ASDIR #1 pkg 02/10/17 Albuterol 0.083% [Albuterol 0.083% 3 ml IH Q4 PRN #50 neb 02/15/17 Inhal Stephanie (2.5 mg/3 ml) UD] Albuterol HFA [Ventolin HFA 90 1 - 2 puff IH Q4H PRN #1 bottle 02/25/17 mcg/actuation (8 g)] predniSONE [Prednisone] 40 mg PO DAILY #8 tab 02/25/17 Albuterol 0.083% [Albuterol 0.083% 3 ml IH Q6H PRN #30 neb 03/04/17 Inhal Stephanie (2.5 mg/3 ml) UD] Albuterol HFA [Ventolin HFA 90 2 puff IH [id number] PRN #1 bottle 03/04/17 mcg/actuation (8 g)] Azithromycin [Zithromax] 250 mg PO DAILY #4 tab 03/04/17 Prednisone 50 mg PO DAILY #4 tab 03/04/17 Albuterol 0.083% [Albuterol 3 ml IH Q8 #1 neb 06/10/17 Sulfate 3 Ml] Albuterol HFA [Ventolin HFA 90 2 puff IH Q4H #1 puff 06/10/17 mcg/actuation (8 g)] predniSONE [predniSONE Tab] 10 mg PO TID #15 tab 06/10/17 Albuterol HFA [Ventolin HFA 90 1 puff IH Q4 #1 puff 07/01/17 mcg/actuation (8 g)] Prednisone 50 mg PO DAILY #5 tablet 07/01/17 Albuterol HFA [Ventolin HFA 90 2 puff IH Q4H #1 puff 07/07/17 mcg/actuation (8 g)] Amoxicillin/Potassium Clav 1 tab PO TID #30 tab 07/07/17 [Augmentin 500 mg-125 mg] Prednisone 50 mg PO DAILY #5 tab 07/07/17 Albuterol HFA [Ventolin HFA 90 1 - 2 puff IH Q6 PRN #1 inhaler 09/14/17 mcg/actuation (8 g)] Methylprednisolone [Medrol Dosepak] 4 mg PO ASDIR #1 pkg 09/14/17 - Allergies Allergies/Adverse Reactions: Allergies Allergy/AdvReac Type Severity Reaction Status Date / Time No Known Allergies Allergy Verified 09/13/17 22:38 Review of Systems ROS Statement: Except As Marked, All Systems Reviewed And Found Negative Constitutional: Positive for: Fever Cardiovascular: Positive for: Other (+ chest tightness) Respiratory: Positive for: Cough, Shortness of Breath, Wheezing Gastrointestinal: Negative for: Nausea, Vomiting Physical Exam - Reviewed Nursing Documentation Reviewed: Yes Vital Signs Reviewed: Yes - Physical Exam Appears: Positive for: Well, Non-toxic, In Acute Distress Head Exam: Positive for: ATRAUMATIC, NORMAL INSPECTION, NORMOCEPHALIC Skin: Positive for: Normal Color, Warm, DRY Eye Exam: Positive for: EOMI, Normal appearance, PERRL ENT: Positive for: Normal ENT Inspection Neck: Positive for: Normal, Painless ROM Cardiovascular/Chest: Positive for: Regular Rate, Rhythm Respiratory: Positive for: Wheezing (diffuse bilateral expiratory), Respiratory Distress, Other (poor air entry). Negative for: Crackles, Rhonchi Gastrointestinal/Abdominal: Positive for: Normal Exam, Bowel Sounds, Soft Back: Positive for: Normal Inspection Extremity: Positive for: Normal ROM Neurologic/Psych: Positive for: Alert, Oriented - Laboratory Results Result Diagrams: 09/13/17 23:33 09/13/17 23:33 - ECG O2 Sat by Pulse Oximetry: 97 (RA) Pulse Ox Interpretation: Normal Medical Decision Making Medical Decision Making: Impression: 42 y/o male with acute asthma exacerbation Plan: - CXR - Duo Neb - Labs - Solumedrol Labs showed elevated LFTs which may be due to his known substance abuse. Discussed that the patient should follow up with his PMD, Dr. Watson for repeat liver function testing. On reevaluation the patient is markedly improved. Discussed results and plan with patient who expresses understanding. Counseling was provided regarding the diagnosis and prognosis. All questions answered and there is agreement with the plan to discharge home with instructions. Patient stable for discharge. Return if symptoms persist or worsen. Scribe Attestation Documented by Jennifer Olivas acting as a scribe for Kahlil Fairchild MD. Provider Attestation All medical record entries made by the Scribe were at my direction and personally dictated by me. I have reviewed the chart and agree that the record accurately reflects my personal performance of the history, physical exam, medical decision making, and the department course for this patient. I have also personally directed, reviewed, and agree with the discharge instructions and disposition. Disposition - Clinical Impression Clinical Impression: Asthma exacerbation - Patient ED Disposition Is Patient to be Admitted: No Doctor Will See Patient In The: Office Counseled Patient/Family Regarding: Diagnosis, Need For Followup, Rx Given - Disposition Disposition: Routine/Home Disposition Time: 00:36 Condition: STABLE Prescriptions: Albuterol HFA [Ventolin HFA 90 mcg/actuation (8 g)] 1 - 2 puff IH Q6 PRN #1 inhaler PRN Reason: Shortness Of Breath Methylprednisolone [Medrol Dosepak] 4 mg PO ASDIR #1 pkg Instructions: Asthma in Adults Forms: [email or web address] ([place])
[2017-09-13 23:38] LABS: BASO # 0.1 K/uL (0.0-0.2); BASO % 0.8 % (0.0-2.0); EOS # 0.4 K/uL (0.0-0.7); EOS % 4.6 % (0.0-4.0); HEMOGLOBIN 15.3 g/dL (12.0-18.0); LYMPH # 1.5 K/uL (1.0-4.3); LYMPH % 16.2 % (20.0-40.0); MEAN CELL VOLUME 93.5 fl (80.0-94.0); MEAN CORPUSCULAR HEMOGLOBIN 31.4 pg (27.0-31.0); MEAN CORPUSCULAR HGB CONC 33.5 g/dL (33.0-37.0); MEAN PLATELET VOLUME 7.9 fl (7.2-11.7); MONO # 1.4 K/uL (0.0-0.8); MONO % 14.8 % (0.0-10.0); NEUT # 5.8 K/uL (1.8-7.0); NEUT % 63.6 % (50.0-75.0); NRBC % 0.1 % (0.0-0.0); RBC 4.88 Mil/uL (4.40-5.90); RED CELL DISTRIBUTION WIDTH 11.9 % (11.5-14.5); WHITE BLOOD COUNT 9.2 K/uL (4.8-10.8)
[2017-09-13 23:50] LABS: ALB/GLOB RATIO 1.5 (1.0-2.1); ALBUMIN 4.8 g/dL (3.5-5.0); ALT/SGPT 296 U/L (21-72); BLOOD UREA NITROGEN 15 mg/dl (9-20); CALCIUM 9.6 mg/dL (8.4-10.2); GFR AFRICAN-AMERICAN > 60; GFR NON-AFRICAN AMERICAN > 60
[2017-09-13 23:54] LABS: PHENCYCLIDINE, UR NEGATIVE (NEGATIVE)
[2017-09-14 00:01] LABS: BARBITURATES, UR NEGATIVE (NEGATIVE); BENZODIAZEPINES, UR NEGATIVE (NEGATIVE); OPIATES, UR NEGATIVE (NEGATIVE)
[2017-09-14 00:29] VITALS: BP 133/65; PULSE 109
[2017-09-14 00:37] VITALS: O2SAT 97
[2017-09-14 01:10] LABS: AST/SGOT 1021 U/L (17-59)
--- NOTE | 2017-09-14 10:08 | RAD ---
HISTORY: cough COMPARISON: No prior. FINDINGS: LUNGS: No active pulmonary disease. PLEURA: No significant pleural effusion identified, no pneumothorax apparent. CARDIOVASCULAR: Normal. OSSEOUS STRUCTURES: No significant abnormalities. VISUALIZED UPPER ABDOMEN: Normal. OTHER FINDINGS: None. IMPRESSION: No active disease.
--- NOTE | 2017-09-15 09:09 | CARD ---
APPROVED REPORT EKG Measurement Heart [id number] <Conclusion> Normal sinus rhythm Possible Left atrial enlargement Borderline ECG
== END 2017-09-14 01:10 | disposition home or self-care (01) ==
LOC: H.ER 22:25
DX: J45.901 Unspecified asthma with (acute) exacerbation (principal)
CPT/HCPCS: 71045; 80053; 80324; 80345; 80346; 80349; 80353; 80358; 80361; 83992; 85025; 87040; 87804; 93005; 94150; 94640; 96374; 99284; J2930